=== PATIENT | female | born 1970 | race Caucasian/White ===

== ENCOUNTER 2024-01-17 10:44 | Outpatient (AMB) | payer OTHER, SELFPAY ==
--- NOTE | 2024-01-17 10:53 | MHC.PC.OV ---
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 Airfield Operations Specialist Required: No Accompanied by: Self / Same As Patient Allergies phenytoin [From Dilantin] Allergy (Severe, Verified 01/17/24 11:16) Rash codeine Adverse Reaction (Severe, Verified 01/17/24 11:16) Vomiting phenobarbital Adverse Reaction (Severe, Verified 01/17/24 11:16) Rash vancomycin Adverse Reaction (Severe, Verified 01/17/24 11:16) Rash Medication List - Last Reconciled 01/17/24 by Ronit Mcgill, [facility]- escitalopram oxalate 10 mg PO DAILY gabapentin 600 mg PO TID tizanidine 4 mg PO TID PRN trazodone 50 mg PO DAILY Tobacco use date assessed: 01/17/24 Dental Screening Dental Screen Date: 01/17/24 Did you have a dental visit in the last 12 months?: No Did you have a dental problem in the last 6 months where you did not have access to dental care?: No Was dental information given to patient?: Yes HPI HPI Comments History of Present Illness Details 53 y/o F with MDD with suicide attempt 2022, reports childhood epilpesy (not on meds currently last Sz in teens), chronic lower ext swelling, HTN, diverticulitis, Surgery: appendectomy, left lower ext with compartment syndrome surgery Family hx: Sister w/ stroke Suicide attempt w/ med oversode in 2022, took lisinopril. Was hospitalized. Utilization: sones and [employer] Health Maintenance: Colon interested in cologaurd, reports colon done about 2009 only dx with diverticulitis. Denies hx of colon cancer. Mammo overdue thinks last one was 2 years ago, ordered today DEXA has never had one, ordered today PAP has been several years, [employer] referral placed today Tdap today Specialists: Psychiatry counselor Here today to [facility] care and for a CPE Previous PCP Dr Micaela Cervantes [place] no medical records at this time. Reports that she relocated to this area to live with a sister. She currently does not drive. Depends on friends and uber to get her to medical appointments. for PN - she went to [facility], states she was diagnosed w/ an autoimmune PN; tips of fingers numbs, most sx in bilat legs and feet. Uses gabapentin with pretty good relief. Has edema bilateral lower extremities that started over the last few years. It is worse since onset. She has not currently on a diuretic. Reports he has never had a workup to include an echocardiogram or any ultrasound imaging of her lower extremities. [facility] Medical History Eczema History of suicidal ideation Anxiety Neuropathy Surgical History History of surgery on lower extremity History of appendectomy Family History (Updated 01/17/24 @ 11:12 by SOHAM Walters) Family/Other Stroke Maternal Grandmother MS (multiple sclerosis) Maternal Aunt Lupus Mother Dementia Other Mental health disorder Substance abuse Social History Housing: Apartment Patient Tobacco Use Status: Never used Tobacco e-Cigarette/Vaping Use: Never Used service: No Current occupational status: unemployed Cognitive needs: No Hearing needs: No Vision needs: Yes Questionnaire PHQ-9 Over the last 2 weeks, how often have you been bothered by any of the following problems? 1. Little interest or pleasure in doing things: not at all 2. Feeling down, depressed, or hopeless: not at all 3. Trouble falling or staying asleep, or sleeping too much: not at all 4. Feeling tired or having little energy: not at all 5. Poor appetite or overeating: not at all 6. Feeling bad about yourself - or that you are a failure or have let yourself or your family down: not at all 7. Trouble concentrating on things, such as reading the newspaper or watching television: not at all 8. Moving or speaking so slowly that other people could have noticed. Or the opposite - being so fidgety or restless that you have been moving around a lot more than usual: not at all 9. Thoughts that you would be better off or of hurting yourself in some way: not at all Total score: 0 Depression Screening Interpretation: Negative Depression Screening Done: Yes 03715 - PHQ-9 Billing: Yes Source: Developed by Drs. Octavio Jaimes, Lexi Garrett, Aníbal Vann and colleagues, with an educational alexsander from [employer]. Thrive Questionnaire Date Thrive assessed: 01/17/24 I am a: Patient What is your living situation today?: I have a steady place to live Within the past 12 months, did the food you bought not last and you didn't have the money to get more?: Never true Within the past 12 months, did you worry whether your food would run out before you got money to buy more?: Never true Do you have trouble paying for medicines?: No Do you have trouble getting transportation to medical appointments?: Yes Do you have trouble paying your heating and electricity bill?: No Do you have trouble taking care of your child, family member or friend?: No Do you have trouble with day-to-day activities such as bathing, preparing meals, shopping, managing finances, etc.?: No Are you currently unemployed and looking for a job?: Yes Are you interested in more education?: Yes Please select the resources that you would like help with: Transportation, Job search/training and Education Currently or been in a relationship where the following occur: no concerns reported THRIVE Score: 1 AUDIT C Alcohol Use Questionnaire (AUDIT-C) 1. How often do you have a drink containing alcohol?: Monthly or less 2. How many drinks containing alcohol do you have on a typical day when you are drinking?: 1 or 2 3. How often do you have six or more drinks on one occasion?: Never Total Score: 1 ARMAAN-7 AMB Questionnaire ARMAAN-7 Date ARMAAN - 7 assessed: 01/17/24 Feeling nervous, anxious, or on edge: 1 = Several days Not being able to stop or control worryin = Not at all Worrying too much about different things: 0 = Not at all Trouble relaxin = Not at all Being so restless that it is hard to sit still: 0 = Not at all Becoming easily annoyed or irritable: 0 = Not at all Feeling afraid as if something awful might happen: 0 = Not at all Total ARMAAN-7 score (0-4 normal; 5-9 mild; 10-14 moderate; 15-21 severe): 1 Source: Developed by Drs. Octavio Jaimes, Lexi Garrett, Aníbal Vann and colleagues, with an educational alexsander from [employer]. ARMAAN-7 Assessment Billing ARMAAN-7 Assessment Tool: ARMAAN-7 Assessment 77210 Review of Systems Const Details: Constitutional: Denies fever. Skin: Denies rash. Eye: Denies eye pain. ENMT: Denies sore throat and nasal congestion. Respiratory: Denies shortness of breath and cough. Gastrointestinal: Denies nausea, vomiting or abdominal pain. Cardiovascular: Denies chest pain and syncope. Genitourinary: Denies dysuria. Musculoskeletal: Denies back pain Neurologic: Denies headaches, confusion, and weakness. Psychiatric: Denies suicidal thoughts and substance abuse. Allergy/ Immunologic: Denies impaired immunity. Physical exam (Primary Care) Vital Signs: Last Vital Signs Temp 97.7 F 01/17/24 10:54 Pulse 124 H 01/17/24 10:54 Resp 14 01/17/24 10:54 BP 124/64 01/17/24 10:54 Pulse Ox 95 01/17/24 10:54 Oxygen Delivery Method Room Air 01/17/24 10:54 BMI result Body Mass Index 30.3 BMI Assessment/Plan discussion: High BMI High, discussed plan: lifestyle Tobacco/Smoking Status: Tobacco use Status Tobacco use date assessed 01/17/24 01/17/24 11:14 Patient Tobacco Use Status Never used Tobacco 01/17/24 11:14 e-Cigarette/Vaping Use Never Used 01/17/24 11:14 PHQ-9: PHQ-9 Score PHQ-9: Total score 0 01/17/24 11:56 Depression Screening Interpretation: Negative Thrive Assessment: Date of Thrive Assessment Date Thrive assessed 01/17/24 01/17/24 11:14 Currently or been in a relationship where the following occur: no concerns reported Const Other: General: Well developed, well nourished, in no acute distress. Appears stated age. Head: Normocephalic, atraumatic. Eyes: Pupils are equal, round and reactive to light and accommodation. Conjunctivae are clear. Vision grossly normal. Ears: TMs clear AU, EACS WNL Nose: Patent, without discharge. Mouth: There are no ulcers or lesions noted. No inflammation, no post nasal drip, no plaques nor exudates. Neck: Supple, no adenopathy or thyromegaly. Lungs: Clear to auscultation bilaterally. No rales, rhonchi or wheeze noted. Good air flow in all [place]. Heart: Tachycardic, Regular rhythm. No murmurs, click, rubs or gallops are noted. Abdomen: Limited exam as she was examined in the chair due to inability to get on exam table. Abdomen is round, protuberant, soft, nontender Musculoskeletal: Joints are nontender, no, redness, or effusions. Range of motion is observed to be normal. Pulses: Peripheral pulses nonpalpable bilat Extremities: No clubbing, cyanosis, +2 edema left lower extremity, +1 edema right lower extremity Neurologic: Gait and station normal. Cranial Nerves 2-12 intact. Abnormal balance due to peripheral neuropathy affecting bilateral lower extremities Skin: No rashes, ulcers, or lesions noted. Turgor is good. Skin color is good. Hair and nails are without abnormalities. Psych: Normal eye contact, affect and mood appropriate, and normal interactions. Patient is alert and appropriate to context. Immunizations Boostrix Tdap 2.5 Lf unit-8 mcg-5 Lf/0.5 mL intramuscular syringe Performing Provider: MYCHAL Carrillo Performing Location: [facility] Medicine Administered by: Neli Ferguson RN on 01/17/24 11:56 Dose Route Admin Location Dispensed Lot Number Expiration Date NDC Account Management Specialist 0.5 mL IM Right Deltoid 0.5 mL [id number] 04/04/26 [id number] [employer] VIS Given Date VIS Provided VIS Publication Date 01/17/24 Single Vaccine 21 Eligibility Eligibility Date Funding Source Not [facility] Eligible 01/17/24 Private Assessment and Plan Assessment & Plan (1) Encounter for general adult medical examination with abnormal findings: Code(s): Z00.01 - Encounter for general adult medical examination with abnormal findings (2) Menopause: Comment: Check DEXA and vitamin-D. Code(s): Z78.0 - Asymptomatic menopausal state (3) Cervical cancer screening: Comment: Refer to digital recruiter for a Pap. Code(s): Z12.4 - Encounter for screening for malignant neoplasm of cervix (4) Laboratory exam ordered as part of routine general medical examination: Code(s): Z00.00 - Encounter for general adult medical examination without abnormal findings (5) Encounter for screening involving social determinants of health (SDoH): Comment: Refer to nurse navigator to help with transportation issues. Code(s): Z13.9 - Encounter for screening, unspecified (6) Bilateral lower extremity edema: Comment: We will start with an echocardiogram. If echocardiogram does not yield any results, we will consider vascular studies of bilateral lower extremities. Can also consider gabapentin as a cause. Code(s): R60.0 - Localized edema (7) Peripheral neuropathy: Comment: Patient reports a full workup at [facility]. 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 We will have to get these records to further clarify. At this time she is on gabapentin 600 t.i.d.. Reports her pain is managed. We will continue at this time. Code(s): G62.9 - Polyneuropathy, unspecified Qualifiers: Peripheral neuropathy type: polyneuropathy associated with underlying disease Qualified Code(s): G63 - Polyneuropathy in diseases classified elsewhere (8) Obesity (BMI 30-39.9): Comment: Lifestyle modifications encouraged. Code(s): E66.9 - Obesity, unspecified (9) MDD (major depressive disorder), recurrent episode: Comment: With suicide attempt in 2022. Currently on escitalopram 10 mg p.o. daily and trazodone 50 mg p.o. daily. She is managed by outside Psychiatry and counseling. Code(s): F33.9 - Major depressive disorder, recurrent, unspecified Qualifiers: Major depression episode severity: moderate Qualified Code(s): F33.1 - Major depressive disorder, recurrent, moderate Orders: Orders Comprehensive [place]. Panel Fast Today Z00.00 - Encounter for general adult medical examination without abnormal findings Hemoglobin A1c Today Z00.00 - Encounter for general adult medical examination without abnormal findings TSH reflex Free T4 Today Z00.00 - Encounter for general adult medical examination without abnormal findings Vitamin D 1,25 dihydroxy Today Z00.00 - Encounter for general adult medical examination without abnormal findings Microalbumin, Random (w Creat) Today Z00.00 - Encounter for general adult medical examination without abnormal findings MM tomosynthesis screening BI Today Z12.31 - Encounter for screening mammogram for malignant neoplasm of breast XR DEXA appendicular skeleton Today Z78.0 - Asymptomatic menopausal state Lipid Panel Today Z00.00 - Encounter for general adult medical examination without abnormal findings CA echo transthoracic complete Today R60.0 - Localized edema TDaP Immunization Today Z23 - Encounter for immunization Referrals Cologuard Test Z12.11 - Encounter for screening for malignant neoplasm of colon, Z12.12 - Encounter for screening for malignant neoplasm of rectum SKI TECHNICIAN Referral Z12.4 - Encounter for screening for malignant neoplasm of cervix Nurse Navigator Referral Z13.9 - Encounter for screening, unspecified Medications: New tizanidine 4 mg (2 x 2 mg) PO TID PRN 30 tabs 1RF muscle spasticity 5 days gabapentin 600 mg (2 x 300 mg) PO TID 180 caps 2RF 30 days trazodone 50 mg PO DAILY 30 tabs 2RF Patient Instructions: Return to the office in about 4-6 weeks to follow up in her lab results as well as her echocardiogram. Sooner if needed. Health screenings for women You should visit your health care provider from time to time, even if you are healthy. The purpose of these visits is to: Screen for medical issues Assess your risk for future medical problems Encourage a healthy lifestyle Update vaccinations and other preventive care services Help you get to know your provider in case of an illness Information Even if you feel fine, you should still see your provider for regular checkups. These visits can help you avoid problems in the future. For example, the only way to find out if you have high blood pressure is to have it checked regularly. High blood sugar and high cholesterol levels also may not have any symptoms in the early stages. A simple blood test can check for these conditions. There are specific times when you should see your provider or receive specific health screenings. The [place] Preventive Services Task Force publishes a list of recommended screenings. Below are screening guidelines for women ages 18 to 39. BLOOD PRESSURE SCREENING Your blood pressure should be checked at least once every 3 to 5 years if: Your blood pressure is in the normal range (top number less than 120 mm Hg and bottom number less than 80 mm Hg) You don't have risk factors for high blood pressure Ask your provider if you need your blood pressure checked more often if: The top number is 120 to 129 mm Hg or the bottom number is 70 to 79 mm Hg You have diabetes, heart disease, kidney problems, are overweight, or have certain other health conditions You have a first-degree relative with high blood pressure You are Black You had high blood pressure during a If the top number is 130 mm Hg or greater or the bottom number is 80 mm Hg or greater, this is considered stage 1 hypertension. Schedule an appointment with your provider to learn how you can reduce your blood pressure. Watch for blood pressure screenings in your area. Ask your provider if you can stop in to have your blood pressure checked. BREAST CANCER SCREENING Experts do not agree about the benefits of breast self-exams in finding breast cancer or saving lives. Talk to your provider about what is best for you. A screening mammogram is not recommended for most women under age 40. Your provider may discuss and recommend mammograms, MRI scans, or ultrasounds if you have an increased risk for breast cancer, such as: A mother or sister who had breast cancer at a young age (most often starting screening earlier than the age the close relative was diagnosed) You carry a high-risk genetic marker CERVICAL CANCER SCREENING Cervical cancer screening should start at age 21 years unless your provider advises otherwise. After the first test: Women ages 21 through 29 should have a Pap test every 3 years. Exoprts do not agree on whether HPV testing is recommended for this age group. Women ages 30 through 65 should be screened with either a Pap test every 3 years or the HPV test every 5 years or both tests every 5 years (called cotesting ). Women who have been treated for precancer (cervical dysplasia) should continue to have Pap tests for 20 years after treatment or until age 65, whichever is longer. If you have had your uterus and cervix removed (total hysterectomy), and you have not been diagnosed with cervical cancer or precancer (high grade cervical neoplasia), you do not need cervical cancer screening. CHOLESTEROL SCREENING Cholesterol screening should begin at: Age 45 for women with no known risk factors for coronary heart disease Age 20 for women with known risk factors for coronary heart disease Repeat cholesterol screening should take place: Every 5 years for women with normal cholesterol levels More often if changes occur in lifestyle (including weight gain and diet) More often if you have diabetes, heart disease, kidney problems, or certain other conditions DIABETES SCREENING You should be screened for diabetes starting at age 35 and then repeated every 3 years if you have no risk factors for diabetes. Screening may need to start earlier and be repeated more often if you have other risk factors for diabetes, such as: You have a first degree relative with diabetes. You are overweight or have obesity. You have high blood pressure, prediabetes, or a history of heart disease. Screening for diabetes should be done if you are planning to become and you are overweight and have other risk factors such as high blood pressure. DENTAL EXAM Go to the dentist once or twice every year for an exam and cleaning. Your dentist will evaluate if you need more frequent visits. EYE EXAM Have an eye exam every 5 to 10 years before age 40. If you have vision problems, have an eye exam every 2 years or more often if recommended by your provider. You should have an eye exam that includes an examination of your retina (back of your eye) at least every year if you have diabetes. IMMUNIZATIONS Commonly needed vaccines include: Flu shot: get one every year. COVID-19 vaccine: ask your provider what is best for you. Tetanus-diphtheria and acellular pertussis (Tdap) vaccine: have one at or after age 19 as one of your tetanus-diphtheria vaccines if you did not receive it as an adolescent. Tetanus-diphtheria: have a booster (or Tdap) every 10 years. Varicella vaccine: receive 2 doses if you never had chickenpox or the varicella vaccine. Hepatitis B vaccine: receive 2, 3, or 4 doses, depending on your exact circumstances. Measles, mumps, and rubella (MMR) vaccine: receive 1 to 2 doses if you are not already immune to MMR. Your provider can tell you if you are immune. Ask your provider about the human papillomavirus (HPV) vaccine if: You have not received the HPV vaccine in the past You have not completed the full vaccine series (you should catch up on this shot) Ask your provider if you should receive other immunizations if you have certain health problems that increase your risk for some diseases such as pneumonia. INFECTIOUS DISEASE SCREENING Women who are sexually active should be screened for chlamydia and gonorrhea up until age 25. Women 25 years and older should be screened for chlamydia and gonorrhea if at high risk. Screening for hepatitis C: All adults ages 18 to 79 should get a one-time test for hepatitis C. people should be screened at every . Screening for human immunodeficiency virus (HIV): All people ages 15 to 65 should get a one-time test for HIV. Depending on your lifestyle and medical history, you may also need to be screened for infections such as syphilis and HIV, as well as other infections. PHYSICAL EXAM All adults should visit their provider from time to time, even if they are healthy. The purpose of these visits is to: Screen for disease Assess your risk of future medical problems Encourage a healthy lifestyle Update your vaccinations and other preventive care services Maintain a relationship with a provider in case of an illness Your height, weight, and BMI should be checked at every exam. During your exam, your provider may ask you about: Depression and anxiety Diet and exercise Alcohol and tobacco use Safety issues, such as using seat belts, smoke detectors, and intimate partner violence Your medicines and risk for interactions SKIN SELF-EXAM Your provider may check your skin for signs of skin cancer, especially if you're at high risk, such as if you: Have had skin cancer before Have close relatives with skin cancer Have a weakened immune system OTHER SCREENING Talk with your provider about colon cancer screening if you have a strong family history of colon cancer or polyps, or if you have had inflammatory bowel disease or polyps yourself. Routine bone density screening of women under 40 is not recommended. Review Patient declined Colonoscopy: 01/17/24 Coding Level of Care Code New Pt Prev Care 40-64y(03794) Diagnoses Encounter for general adult medical examination with abnormal findings Z00.01 Menopause Z78.0 Cervical cancer screening Z12.4 Laboratory exam ordered as part of routine general medical examination Z00.00 Encounter for screening involving social determinants of health (SDoH) Z13.9 Bilateral lower extremity edema R60.0 Polyneuropathy associated with underlying disease G63 Peripheral neuropathy type: polyneuropathy associated with underlying disease Obesity (BMI 30-39.9) E66.9 Moderate episode of recurrent major depressive disorder F33.1 Major depression episode severity: moderate Additional Codes ARMAAN-7 Assessment Billing - ARMAAN-7 Assessment Tool: ARMAAN-7 Assessment 28017 ([id number])
[2024-01-17 10:54] VITALS: BP 124/64; PULSE 124; RESP 14; TEMP 36.5; O2SAT 95; BMI 30.3
== END 2024-01-17 12:02 | disposition home or self-care (01) ==
PROVIDERS: PCP Family Medicine; Visit Provider Nurse Practitioner Family
DX: Z00.00 Encounter for general adult medical examination without abnormal findings (principal); F33.1 Major depressive disorder, recurrent, moderate; G63 Polyneuropathy in diseases classified elsewhere; Z23 Encounter for immunization; R60.0 Localized edema; Z78.0 Asymptomatic menopausal state; E66.9 Obesity, unspecified
CPT/HCPCS: 90471; 90715; 99386

== ENCOUNTER 2024-01-17 11:53 | Outpatient (REF) | payer OTHER, SELFPAY ==
[2024-01-17 17:47] LABS: Alanine Aminotransferase 22 U/L (0-31); Albumin Level 3.2 g/dL (3.5-5.0); Alkaline Phosphatase 180 U/L (39-117); Anion Gap 15 (12-20); Aspartate Amino Transferase 98 U/L (5-31); Bilirubin Total 2.7 mg/dL (0.0-1.0); Blood Urea Nitrogen < 3 mg/dL (9-16); Calcium 8.4 mg/dL (8.4-10.2); Carbon Dioxide 23 mmol/L (22-29); Chloride 105 mmol/L (96-108); Cholesterol 121 mg/dL (<200); Estimated Average Glucose 94 mg/dL; Estimated Glomerular Filt Rate > 60; Glucose Fasting 105 mg/dL (60-99); HDL Cholesterol 13 mg/dL (>40); Hemoglobin A1c % 4.9 % (<6.0); LDL Cholesterol Calculated 81 mg/dL (<100); Potassium 3.8 mmol/L (3.3-5.1); Sodium 139 mmol/L (135-145); TSH reflex Free T4 3.92 uIU/mL (0.32-4.0); Total Protein 7.4 g/dL (6.5-8.0); Triglycerides 135 mg/dL (<150)
[2024-01-24 18:09] LABS: VITAMIN D (1,25 OH) D3 29 pg/mL; Vit D (1,25-Dihydroxy) Total 29 pg/mL (18-72); Vitamin D (1,25 OH) D2 <8 pg/mL
== END 2024-01-17 11:54 | disposition home or self-care (01) ==
LOC: HO.WFDLDS 11:53
PROVIDERS: Visit Provider Nurse Practitioner Family
DX: Z00.00 Encounter for general adult medical examination without abnormal findings (principal)
CPT/HCPCS: 36415; 80053; 80061; 82652; 83036; 84443

== ENCOUNTER 2024-02-22 11:34 | Outpatient (REF) | payer OTHER, SELFPAY ==
[2024-02-23 11:35] LABS: Bacterial Vaginosis PCR POSITIVE (Negative); Candida Group PCR NOT DETECTED (Not Detect); Candida glab krusei PCR NOT DETECTED (Not Detect); Trichomonas vaginalis PCR NOT DETECTED (Not Detect)
[2024-02-23 13:37] LABS: CT PCR NOT DETECTED (Not Detect.); NG PCR NOT DETECTED (Not Detect.)
[2024-02-28 12:28] LABS: HPV mRNA E6/E7 Not Detected (Not Detected)
== END 2024-02-22 11:35 | disposition home or self-care (01) ==
LOC: HO.LAB 11:34
PROVIDERS: PCP Nurse Practitioner Family; Visit Provider Advanced Practice Midwife
DX: Z01.419 Encounter for gynecological examination (general) (routine) without abnormal findings (principal); Z11.51 Encounter for screening for human papillomavirus (HPV); Z20.2 Contact with and (suspected) exposure to infections with a predominantly sexual mode of transmission; N89.8 Other specified noninflammatory disorders of vagina
CPT/HCPCS: 0352U; 36415; 87491; 87591; 87624; 88175

== ENCOUNTER 2024-02-22 11:34 | Outpatient (AMB) | payer OTHER, SELFPAY ==
[2024-02-22 11:50] VITALS: BP 128/78; BMI 29.0
--- NOTE | 2024-02-22 11:50 | A.OFFVIS_ITS ---
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 Library Clerical Assistant Required: No Library Clerical Assistant Services: Library Clerical Assistant Present Information Interpreted: clinical only Eligibility Examiner: Eligibility Examiner Present Allergies phenytoin [From Dilantin] Allergy (Severe, Verified 02/22/24 11:51) Rash codeine Adverse Reaction (Severe, Verified 02/22/24 11:51) Vomiting phenobarbital Adverse Reaction (Severe, Verified 02/22/24 11:51) Rash vancomycin Adverse Reaction (Severe, Verified 02/22/24 11:51) Rash Medication List - Last Reconciled 02/22/24 by Cyndi Juares CNM escitalopram oxalate 10 mg PO DAILY gabapentin 600 mg (2 x 300 mg) PO TID 30 days tizanidine 4 mg (2 x 2 mg) PO TID PRN 5 days trazodone 50 mg PO DAILY Post menopausal: Yes (05/20/23) Do you need a note to return to daycare/school/sports/work: No HPI 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 She has on a number of medications for these things. The last time she was sexually active with 3 years ago it has been a number of years since she had a exam her last period was last April so it has not quite a year yet. She has not really worried about STDs but except some testing with the speculum exam., she has a mammogram coming up. [facility] Medical History Eczema History of suicidal ideation Anxiety Neuropathy Surgical History History of surgery on lower extremity History of appendectomy Family History Family/Other Stroke Maternal Grandmother MS (multiple sclerosis) Maternal Aunt Lupus Mother Dementia Other Mental health disorder Substance abuse Social History Housing: Apartment Patient Tobacco Use Status: Never used Tobacco e-Cigarette/Vaping Use: Never Used service: No Current occupational status: unemployed Cognitive needs: No Hearing needs: No Vision needs: Yes Female Reproductive History Menstrual Age of Menarche: 15 Duration of menses: 3-5 days control method: none Total pregnancies: 1 Full term: 1 History of abnormal pap smear: No (no abn.pap ,previous pap negative ,unsure date) Physical Exam Vital Signs: Last Vital Signs BP 128/78 02/22/24 11:50 BMI result Body Mass Index 29.0 Const Other: Patient has lower extremity limitations in that she clearly was not able to maintain her legs in any stable position and has limited sensation and control. General: healthy appearing, comfortable, no acute distress, well developed and alert Nutritional Appearance: average body habitus Orientation/consciousness: patient oriented x3 HEENT Head: Yes normocephalic Neck Neck: Yes normal visual inspection Thyroid: Thyroid normal Chest Chest palpation & inspection: normal inspection of the chest Breast/axilla inspection: normal inspection of the breasts and normal inspection of the axillae Breast/axilla palpation: normal palpation of the breasts and normal palpation of the axillae Resp Effort & Inspection: normal respiratory effort GI Inspection: Yes normal to inspection, No Abdominal wall edema and No distended Palpation (GI): Soft to palpation and nontender Other: .Her entire vulvar area is very reddened and inflamed such as would usual the be accompanied by a sensation of vaginal itching or irritation or burning. The patient however denies any such sensation and has no discomfort whatsoever. However it is so inflamed and given her obvious since 0 real deficits I am offering her clotrimazole betamethasone cream for her use in this area and a limited basis sparingly. She has eczema so it could be in keeping. She says she uses cotton underwear. Atrophic vaginal changes noted consistent with menopause. General: Yes bladder normal to palpation External Female Exam: normal appearance of the urethra Speculum Exam - Vagina: normal appearance of the vagina, normal palpation and normal vaginal discharge Speculum Exam - Cervix: normal appearance of the cervix, normal palpation and nontender Bimanual exam- vagina & uterus: normal bimanual exam, normal palpation, uterine size normal, bladder normal to palpation, consistency normal, normal palpation, uterine mobility normal, uterine shape normal, No Cervical tenderness present, non-tender and no cervical motion tenderness Bimanual Exam- Adnexa, other: normal adnexae, no masses, normal and No adnexal tenderness Neuro General: patient oriented x3 Assessment & Plan Assessment & Plan (1) Peripheral neuropathy: Comment: Patient reports a full workup at [facility]. 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 We will have to get these records to further clarify. At this time she is on gabapentin 600 t.i.d.. Reports her pain is managed. We will continue at this time. 02/22/2024 see note re vulvar inflammation, Code(s): G62.9 - Polyneuropathy, unspecified Category: Medical Qualifiers: Peripheral neuropathy type: polyneuropathy associated with underlying disease Qualified Code(s): G63 - Polyneuropathy in diseases classified elsewhere (2) Bilateral lower extremity edema: Comment: We will start with an echocardiogram. If echocardiogram does not yield any results, we will consider vascular studies of bilateral lower extremities. Can also consider gabapentin as a cause. Code(s): R60.0 - Localized edema Category: Medical (3) Cervical cancer screening: Comment: Refer to animal pathology teacher for a Pap.; 02/22/2024 Pap done. Code(s): Z12.4 - Encounter for screening for malignant neoplasm of cervix Category: Medical Plan Her entire vulvar area is very reddened and inflamed such as would usual the be accompanied by a sensation of vaginal itching or irritation or burning. The patient however denies any such sensation and has no discomfort whatsoever. However it is so inflamed, and given her obvious sensorial deficits/neuropathy, I am offering her clotrimazole betamethasone cream for her use in this area on a limited basis sparingly. She has eczema, so it could be in keeping w that.. She says she uses cotton underwear. She has her mammogram and other testing ordered by her primary care provider. She says she stopped driving years ago and takes a number where she needs to go. She was able to dress herself with difficulty but there are challenges. Pap smear was done as well as testing for gonorrhea chlamydia trichomoniasis bacterial vaginosis and yeast she declined in blood work. I did inquire as to whether not she had any diabetes says it is often a responsible factor for neuropathy but she denies this, and says any fasting blood sugars were within normal limits. Orders: Orders Pap Smear Today Z01.419 - Encounter for gynecological examination (general) (routine) without abnormal findings CT NG by PCR Today N89.8 - Other specified noninflammatory disorders of vagina, Z11.3 - Encounter for screening for infections with a predominantly sexual mode of transmission Bacterial Vaginosis Panel Today N89.8 - Other specified noninflammatory diso rders of vagina Medications: New clotrimazole-betamethasone 1-0.05 % 1 appl topical BID 2 weeks 45 grams 1RF Coding Level of Care Code New Pt Prev Care 40-64y(06884) Diagnoses Polyneuropathy associated with underlying disease G63 Peripheral neuropathy type: polyneuropathy associated with underlying disease Bilateral lower extremity edema R60.0 Cervical cancer screening Z12.4
== END 2024-02-22 12:50 | disposition home or self-care (01) ==
LOC: HO.HWSM 11:34
PROVIDERS: PCP Nurse Practitioner Family; Visit Provider Advanced Practice Midwife
DX: Z01.419 Encounter for gynecological examination (general) (routine) without abnormal findings (principal); R60.0 Localized edema; G63 Polyneuropathy in diseases classified elsewhere; Z12.4 Encounter for screening for malignant neoplasm of cervix
CPT/HCPCS: 99386

== ENCOUNTER 2024-02-27 12:20 | Outpatient (AMB) | payer OTHER, SELFPAY ==
--- NOTE | 2024-02-27 12:27 | MHC.PC.OV ---
Vital Signs 02/27/24 12:31 02/27/24 12:38 Height 5 ft 3 in Weight 162 lb 4 oz BMI 28.7 BP 146/64 H 138/58 L Blood Pressure Location Rt brachial Rt brachial Position Sitting Sitting Respiration 16 Pulse 121 H 100 Pulse Source Pulse Oximeter Auscultation Pulse Oximetry (%) 97 Oxygen Delivery Method Room Air Intake Visit Reasons: FU labs, PN and Echo for BLE edema Intake Note: Follow up lab results, echo is scheduled on Monday. Mammogram and bone density scheduled for 03/14/24. Requesting refill on Trazadone. Allergies phenytoin [From Dilantin] Allergy (Severe, Verified 02/27/24 12:29) Rash codeine Adverse Reaction (Severe, Verified 02/27/24 12:29) Vomiting phenobarbital Adverse Reaction (Severe, Verified 02/27/24 12:29) Rash vancomycin Adverse Reaction (Severe, Verified 02/27/24 12:29) Rash Medication List - Last Reconciled 02/27/24 by Ronit Mcgill, SOCIAL SERVICE TECHNICIAN- clotrimazole-betamethasone 1-0.05 % 1 appl topical BID 2 weeks escitalopram oxalate 10 mg PO DAILY gabapentin 600 mg (2 x 300 mg) PO TID 30 days tizanidine 4 mg (2 x 2 mg) PO TID PRN 5 days trazodone 50 mg PO DAILY Tobacco use date assessed: 01/17/24 Dental Screening Dental Screen Date: 01/17/24 HPI HPI Comments History of Present Illness Details 53 y/o F with MDD with suicide attempt 2022, reports childhood epilpesy (not on meds currently last Sz in teens), chronic lower ext swelling, HTN, diverticulitis, prothrombin gene mutation Surgery: appendectomy, left lower ext with compartment syndrome surgery Family hx: Sister w/ stroke Suicide attempt w/ med oversode in 2022, took lisinopril. Was hospitalized. Utilization: [employer] and [employer]ator [employer] Health Maintenance: Colon interested in cologaurd, reports colon done about 2009 only dx with diverticulitis. Denies hx of colon cancer. 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 Edema is improved, started taking red vine leaf and thinks this has helped Echo, DEXA and Mammo scheduled and pending Reviewed below labs from 01/17/2024 with her today. Patient wonders if her overdose on lisinopril contributes at all to her renal function. 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 Labs from 01/17/2024 show normal lytes, BUN less than 3, creatinine 0.73, GFR greater than 60, fasting glucose 105, hemoglobin A1c 4.9%, elevated total bilirubin 2.7, elevated AST 98, normal ALT 22, elevated alk phos 180, low albumin 3.2, normal total cholesterol 121, triglycerides 135, LDL 81, HDL 13, TSH 3.92, Vit D 29 02/27/2024 urine microalbumin normal Plan Check some additional labs to workup the abnormal labs as found above. Check ultrasound of abdomen to include elastography and renal imaging. Return to the office in about 4-6 weeks to follow up on the imaging and the lab results, sooner as needed, at this time no changes in medication, trazodone refill sent in. Trazodone and/or gabapentin may need to be discontinued in the future. The gabapentin may be contributing to her edema in the trazodone may be contributing to the liver enzyme elevation however no decisions will be made at this time to stop these meds until work up is complete. the tachycardia will also need to be ff'd up on. *30 min fu end of Mar discuss US Liver, Echo, Labs -- will cancel if US/labs not done and move appt* [facility] Medical History Eczema History of suicidal ideation Anxiety Neuropathy Surgical History History of surgery on lower extremity History of appendectomy Family History Family/Other Stroke Maternal Grandmother MS (multiple sclerosis) Maternal Aunt Lupus Mother Dementia Other Mental health disorder Substance abuse Social History Housing: Apartment Patient Tobacco Use Status: Never used Tobacco e-Cigarette/Vaping Use: Never Used service: No Current occupational status: unemployed Cognitive needs: No Hearing needs: No Vision needs: Yes Female Reproductive History Menstrual Age of Menarche: 15 Questionnaire Thrive Questionnaire Date Thrive assessed: 01/17/24 ARMAAN-7 AMB Questionnaire ARMAAN-7 Date ARMAAN - 7 assessed: 01/17/24 Source: Developed by Drs. Octavio Jaimes, Lexi Garrett, Aníbal Vann and colleagues, with an educational alexsander from [employer]. Physical exam (Primary Care) Vital Signs: Last Vital Signs Pulse 121 H 02/27/24 12:31 Resp 16 02/27/24 12:31 BP 138/58 L 02/27/24 12:38 Pulse Ox 97 02/27/24 12:31 Oxygen Delivery Method Room Air 02/27/24 12:31 BMI result Body Mass Index 28.7 Tobacco/Smoking Status: Tobacco use Status Tobacco use date assessed 01/17/24 02/27/24 12:29 Patient Tobacco Use Status Never used Tobacco 02/27/24 12:29 e-Cigarette/Vaping Use Never Used 02/27/24 12:29 Thrive Assessment: Date of Thrive Assessment Date Thrive assessed 01/17/24 02/27/24 12:29 Const Other: General: Well developed, well nourished, in no acute distress. Appears stated age.. Lungs: Clear to auscultation bilaterally. No rales, rhonchi or wheeze noted. Good air flow in all [place]. Heart: Tachycardic, Regular rhythm. No murmurs, click, rubs or gallops are noted. Abdomen: Limited exam as she was examined in the chair due to inability to get on exam table. Abdomen is round, protuberant, soft, nontender Pulses: Peripheral pulses nonpalpable bilat Extremities: No clubbing, cyanosis, +1 edema left lower extremity, trace edema right lower extremity Neurologic: Gait and station normal. Cranial Nerves 2-12 intact. Abnormal balance due to peripheral neuropathy affecting bilateral lower extremities Psych: Normal eye contact, affect and mood appropriate, and normal interactions. Patient is alert and appropriate to context. Assessment and Plan Assessment & Plan (1) Elevated LFTs: Code(s): R7.89 - Other specified abnormal findings of blood chemistry (2) Prothrombin gene mutation: Code(s): D68.52 - Prothrombin gene mutation (3) Secondary hypercoagulability disorder: Code(s): D68.69 - Other thrombophilia (4) Bilateral lower extremity edema: Comment: We will start with an echocardiogram. If echocardiogram does not yield any results, we will consider vascular studies of bilateral lower extremities. Can also consider gabapentin as a cause. Code(s): R60.0 - Localized edema Plan This note is constructed using voice recognition software. While every effort has been made to ensure accuracy in construction analyst, still errors may have been included Sometimes, these errors may affect the content or meaning of the given sentence . Total time spent caring for the patient today was 43 minutes. This includes time spent before the visit reviewing the chart, time spent during the visit, and time spent after the visit on documentation Orders: Orders Ferritin Today . - Other specified abnormal findings of blood chemistry Alpha Fetoprotein Today R7.89 - Other specified abnormal findings of blood chemistry Lactate Dehydrogenase Today R7.89 - Other specified abnormal findings of blood chemistry Smooth Muscle Antibody Today R7.89 - Other specified abnormal findings of blood chemistry JAVIER Reflex Titer and Pattern Today R7. - Other specified abnormal findings of blood chemistry Complete Blood Count no Diff Today R7. - Other specified abnormal findings of blood chemistry Zinc Today R79.89 - Other specified abnormal findings of blood chemistry Vitamin C Today R7.89 - Other specified abnormal findings of blood chemistry US abdomen nicolas w elastography Today R7. - Other specified abnormal findings of blood chemistry Alpha 1 Anti-trypsin Today R7.89 - Other specified abnormal findings of blood chemistry Ceruloplasmin Today R7.89 - Other specified abnormal findings of blood chemistry Gamma Glutamyl Transpeptidase Today R79.89 - Other specified abnormal findings of blood chemistry Monotest Today R7.89 - Other specified abnormal findings of blood chemistry IRON PROFILE Today R7.89 - Other specified abnormal findings of blood chemistry Comprehensive Met. Panel Today R7.89 - Other specified abnormal findings of blood chemistry Vitamin B12 and Folate Today R79.89 - Other specified abnormal findings of blood chemistry Parathyroid Hormone Intact Today R7.89 - Other specified abnormal findings of blood chemistry Medications: Refilled trazodone 50 mg PO DAILY 30 tabs 2RF Coding Level of Care Code Est Pt Level 5 (91023) Complex EM visit Add On G2211 Diagnoses Elevated LFTs R79.89 Prothrombin gene mutation D68.52 Secondary hypercoagulability disorder D68.69 Bilateral lower extremity edema R60.0
[2024-02-27 12:31] VITALS: BP 146/64; PULSE 121; RESP 16; O2SAT 97; BMI 28.7
[2024-02-27 12:38] VITALS: BP 138/58; PULSE 100
== END 2024-02-27 13:12 | disposition home or self-care (01) ==
PROVIDERS: PCP Nurse Practitioner Family; Visit Provider Nurse Practitioner Family
DX: R79.89 Other specified abnormal findings of blood chemistry (principal); D68.52 Prothrombin gene mutation; R60.0 Localized edema
CPT/HCPCS: 99215; G2211

== ENCOUNTER 2024-02-27 14:25 | Outpatient (REF) | payer OTHER, SELFPAY ==
[2024-02-27 15:17] LABS: Creatinine Urine 149.75 mg/dL; Microalbum/Creatinine Ratio Ur 4.6 ug/mg cr (<30)
== END 2024-02-27 14:26 | disposition home or self-care (01) ==
LOC: HO.LNP 14:25
PROVIDERS: Visit Provider Nurse Practitioner Family
DX: Z00.00 Encounter for general adult medical examination without abnormal findings (principal)
CPT/HCPCS: 82043; 82570

== ENCOUNTER → 2024-03-01 09:05 | Outpatient (REF) | payer OTHER, SELFPAY ==
--- NOTE | 2024-03-01 09:08 | CA_ITS ---
Transthoracic Echocardiogram Patient (Last, First, Middle): Janene Her, Gender: Female Date of : 1970 Age: 53 Procedure Date: 03/01/2024 Procedure Type: Transthoracic Echocardiogram Location: OP Height: 160.02 cm Weight: 73.48 kg BSA: 1.77 m2 Heart Rate: 107 bpm BP: 136 / 60 mmHg Quality Assurance Qa Lab Analyst: SB Referring MD: Ronit Mcgill [facility] Symptoms: R60.0 - Localized edema Study Quality: Fair ECG Rhythm: Tachycardia Conclusions: - The left ventricular systolic function is normal. The calculated ejection fraction is 65% by biplane method. - No obvious valvular pathology seen on this study. Findings Left Ventricle Normal left ventricular cavity size. The left ventricular systolic function is normal. The calculated ejection fraction is 65% by biplane method. There is no evidence of regional wall motion abnormalities. Evidence suggests grade I (mild) diastolic dysfunction. There is mild septal asymmetric hypertrophy. Right Ventricle Normal right ventricular cavity size and systolic function. Atria The left atrium is mildly dilated. The right atrium is normal in size. Aortic Valve There is a normal trileaflet aortic valve. There is no aortic valve stenosis. There is no aortic valve regurgitation. Mitral Valve The mitral valve appears normal. There is no mitral valve regurgitation. There is no mitral valve stenosis. Pulmonic Valve The pulmonic valve is likely normal. Tricuspid Valve There is no tricuspid valve regurgitation. Tricuspid regurgitation envelope is inadequate for calculation of right ventricular systolic pressure. Great Vessels The asc aorta and aortic arch are normal in size. Venous The inferior vena cava was not well visualized. Pericardium/Pleural There is no evidence of pericardial effusion. Prior Study Comparison No prior study available for comparison. Recommendations, Care & Conclusions No obvious valvular pathology seen on this study. Measurements 2D Linear Measurements IVSd: 1.10 0.6-0.9/0.6-1.0 cm LVIDd: 4.96 3.9-5.3/4.2-5.9 cm LVIDd Index: 2.80 2.4-3.2/2.2-3.1 cm/m2 LVIDs: 3.01 2.0-3.6 cm LVPWd: 0.72 0.7-1.1 cm LA Diam: 4.90 2.7-3.8/3.0-4.0 cm LAIDs Index: 2.77 1.5-2.3 cm/m2 LV Mass: 196.65 67-162/88-224 g LV Mass Index: 111.10 43-95/49-115 g/m2 LVOT Diam: 1.90 3.0+(-)1.3 cm 2D Systolic Function EF 4C: 63.90 >55% EF 2C: 67.40 >55% EF BiP: 64.90 >55% Mitral Valve MV Pk E: 1.17 MV PK A: 1.28 MV Decel Time: 131.00 E/A: 0.90 E'Lateral: 6.85 E'Medial: 7.72 E/E' Med: 15.20 E/E' Lat: 17.10 PHT: 38.00 MVA PHT: 5.79 Decel [place]: 8.91 Aortic Valve AoV Pk Satya: 1.81 AoV Pk Grad: 13.00 ALVARO: 2.63 LVOT LVOT Pk Satya: 1.62 LVOT Mn Satya: 1.12 LVOT VTI: 0.32 LVOT Pk Grad: 10.00 LVOT Mn Grad: 6.00 LVOT Diam: 1.90 LVOT Area: 2.84 Diastolic Function MV Pk E: 1.17 MV Pk A: 1.28 E/A: 0.90 E'Medial: 7.72 E/E' Med: 15.20 E' Laterial: 6.85 E/E' Lat: 17.10 Right Ventricle TAPSE (mm): 22.10 TVS' Satya: 17.00 Tricuspid Valve RA Press: 3.00 Great Vessels Aorta Sinus of Valsalva: 2.70 2.0-3.5 cm Ao Asc: 3.10 2.1-3.4 cm Ao Arch: 2.90 Pulmonary Veins Pulm Vein S/D 1.30 Pulmonary Valve PV Pk Satya: 1.33 Peak PV Grad: 7.00 Updated in Other Vendor System with Status of Final Luis White MD electronically signed on 03/02/2024 12:01:32 PM with status of Final
[2024-03-01 10:46] LABS: Hematocrit 35.3 % (37.0-47.0); Hemoglobin 11.9 g/dl (12.0-16.0); Mean Corpuscular HGB Conc 33.7 g/dl (31.0-35.0); Mean Corpuscular Hemoglobin 34.9 pg (27.0-33.0); Mean Corpuscular Volume 103.5 fL (80.0-98.0); Mean Platelet Volume 9.7 fL (9.4-12.3); Platelet Count 207 X10*3/uL (160-400); Red Blood Count 3.41 X10*6/uL (4.20-5.50); Red Cell Distribution Width 14.4 % (11.0-16.0); White Blood Count 10.5 X10*3/uL (4.8-10.8)
[2024-03-01 11:13] LABS: Parathyroid Hormone Intact 20.8 pg/mL (8.7-77.1)
[2024-03-01 11:16] LABS: Alanine Aminotransferase 16 U/L (0-31); Albumin Level 3.3 g/dL (3.5-5.0); Alkaline Phosphatase 183 U/L (39-117); Anion Gap 12 (12-20); Aspartate Amino Transferase 58 U/L (5-31); Bilirubin Total 2.1 mg/dL (0.0-1.0); Blood Urea Nitrogen 6 mg/dL (9-16); Calcium 9.1 mg/dL (8.4-10.2); Carbon Dioxide 29 mmol/L (22-29); Chloride 103 mmol/L (96-108); Estimated Glomerular Filt Rate > 60; Gamma Glutamyl Transpeptidase 283 U/L (7-33); Glucose Random 105 mg/dL (60-115); Iron 95 mcg/dL (30-160); Lactate Dehydrogenase 167 U/L (122-220); Lipase 22 U/L (8-78); Percent Iron Saturation 57 % (15-50); Potassium 3.7 mmol/L (3.3-5.1); Sodium 140 mmol/L (135-145); Total Iron Binding Capacity 166 mcg/dL (228-428); Total Protein 7.7 g/dL (6.5-8.0); Unsaturated Iron Binding 71 ug/dL
[2024-03-01 11:22] LABS: Amylase 50 U/L (28-100)
[2024-03-01 11:42] LABS: Ferritin 143 ng/mL (10-250); Folate 15.7 ng/mL (> or = 4.0); Vitamin B12 876 pg/mL (200-900)
[2024-03-01 12:03] LABS: Creatinine Urine 164.21 mg/dL; Microalbum/Creatinine Ratio Ur 4.8 ug/mg cr (<30)
[2024-03-01 12:33] LABS: Monotest Negative (Negative)
[2024-03-04 09:03] LABS: Alpha 1 Anti-trypsin 214 mg/dL (83-199); Ceruloplasmin 21 mg/dL (14-48)
[2024-03-05 01:19] LABS: Zinc 54 mcg/dL (60-130)
[2024-03-06 08:28] LABS: Alpha Fetoprotein 6.4 ng/mL
[2024-03-06 12:44] LABS: Vitamin C 0.8 mg/dL (0.3-2.7)
[2024-03-06 15:33] LABS: Anti Nuclear Antibody Screen NEGATIVE (NEGATIVE)
[2024-03-07 23:47] LABS: Smooth Muscle Antibody 24 U (<20)
== END ==
LOC: HO.CARD 09:05
PROVIDERS: PCP Nurse Practitioner Family; Visit Provider Nurse Practitioner Family
DX: R60.0 Localized edema (principal); R79.89 Other specified abnormal findings of blood chemistry; Z00.00 Encounter for general adult medical examination without abnormal findings
CPT/HCPCS: 36415; 80053; 82043; 82103; 82105; 82150; 82180; 82390; 82570; 82607; 82728; 82746; 82977; 83540; 83615; 83690; 83970; 84630; 85027; 86015; 86038; 86308; 93306

== ENCOUNTER → 2024-03-01 09:08 | Outpatient (BNV) | payer OTHER, SELFPAY | PROVIDERS: PCP Nurse Practitioner Family; Visit Provider Internal Medicine | DX: I42.2 Other hypertrophic cardiomyopathy (principal); R93.1 Abnormal findings on diagnostic imaging of heart and coronary circulation | CPT/HCPCS: 93306 ==

== ENCOUNTER 2024-03-14 10:39 | Outpatient (REF) | payer OTHER, SELFPAY ==
--- NOTE | ~2024-03-14 | MM_ITS ---
EXAMINATION: MM SCREENING DIGITAL BREAST TOMOSYNTHESIS, BILATERAL CLINICAL INFORMATION: Screening. Asymptomatic. COMPARISON: Mammography: This study is compared with prior exams dating back to 2020. TECHNIQUE: Digital breast tomosynthesis is performed in both the craniocaudal and mediolateral oblique views along with computer-aided detection (CAD). Synthesized 2D images are generated from the tomosynthesis. FINDINGS: The breasts are heterogeneously dense, which may obscure small masses (ACR BI-RADS breast composition Category c). There are no significant masses, abnormal calcifications, or other abnormalities. MM/MM tomosynthesis screening BI IMPRESSION: No mammographic evidence of malignancy. ASSESSMENT: BI-RADS BI-RADS 1 - Negative RECOMMENDATION: Routine annual mammography screening. 1 year F/U This examination should not preclude the clinical evaluation of a suspicious palpable abnormality. This patient's information was entered into a reminder system with a target due date for their next mammogram.
--- NOTE | ~2024-03-14 | MM_ITS ---
EXAMINATION: BONE DENSITOMETRY CLINICAL INDICATION: Asymptomatic menopausal state. COMPARISON: This is the patient's baseline examination. TECHNIQUE: Using a [employer] DXA System (software version: 13.1) manufactured by [employer], dual-energy x-ray absorptiometry was performed of the lumbar spine and left hip. The images are of good technical quality. Summary results are attached. FINDINGS: LEFT FEMUR, NECK: BMD 0.581 g/cm2, Z-score -2.7, T-score -3.3, osteoporosis. LEFT FEMUR, TOTAL: BMD 0.605 g/cm2, Z-score -2.9, T-score -3.2, osteoporosis. AP SPINE L1-L4: BMD 1.059 g/cm2, Z-score -0.8, T-score -1.0, normal. IDENTIFIED RISK FACTORS: Menopause, history of fracture (adult). HISTORY OF FRACTURE: Other. MEDICATIONS: Calcium supplements or multivitamin, vitamin D. MM/XR DEXA axial skeleton IMPRESSION: 1. DIAGNOSIS: Osteoporosis based on the lowest T-score value of -3.3 in the femoral neck applying World Health Organization criteria. 2. 10-YEAR FRACTURE RISK PREDICTION, FRAX: According to the guidelines, FRAX calculation should only be performed on patients in the osteopenia bone density category. Therefore, FRAX was not performed on this patient. 3. Treatment Recommendations: NOF guidelines recommend consideration for treatment in postmenopausal women and men age 50 and older presenting with the following: -A hip or vertebral (clinical or morphometric) fracture. -T-score less than or equal to -2.5 at the femoral neck or spine after appropriate evaluation to exclude secondary causes. -Low bone mass at the hip or spine and a 10-year fracture probability by FRAX of greater than or equal to 3% for hip fracture or greater than or equal to 20% for major osteoporotic fracture based on the [place] adapted WHO algorithm. 4. Other Recommendations: All treatment decisions require clinical judgment and consideration of individual patient factors, including patient preferences, comorbidities, previous drug use, risk factors not captured in the FRAX model (e.g. frailty, falls, vitamin D deficiency, increased bone turnover, interval significant decline in bone density) and possible under or overestimation of fracture risk by FRAX. Additional medical evaluation for secondary cause of low bone mineral density may be appropriate. FUTURE SCAN RECOMMENDATION: People with diagnosed cases of osteoporosis or at high risk for fracture should have regular bone mineral density tests. For patients eligible for Medicare, routine testing is allowed once every 2 years. The testing frequency can be increased to one year for patients who have rapidly progressing disease, those who are receiving or discontinuing medical therapy to restore bone mass, or have additional risk factors.
== END 2024-03-14 10:40 | disposition home or self-care (01) ==
LOC: HO.MAMMO 10:39
PROVIDERS: PCP Nurse Practitioner Family; Visit Provider Nurse Practitioner Family
DX: Z12.31 Encounter for screening mammogram for malignant neoplasm of breast (principal); Z13.820 Encounter for screening for osteoporosis; Z78.0 Asymptomatic menopausal state
CPT/HCPCS: 77063; 77067; 77080

== ENCOUNTER → 2024-03-14 10:45 | Outpatient (BNV) | payer OTHER, SELFPAY | PROVIDERS: PCP Nurse Practitioner Family; Visit Provider Radiology Diagnostic Radiology | DX: Z12.31 Encounter for screening mammogram for malignant neoplasm of breast (principal) | CPT/HCPCS: 77063; 77067 ==

== ENCOUNTER 2024-03-25 08:29 | Outpatient (REF) | payer OTHER, SELFPAY ==
--- NOTE | ~2024-03-25 | US_ITS ---
EXAMINATION: US COMPLETE ABDOMEN WITH LIVER ELASTOGRAPHY CLINICAL INFORMATION: Abnormal blood chemistry. COMPARISON: None available. TECHNIQUE: Real-time imaging of the abdominal viscera. Noninvasive ultrasound liver fibrosis assessment is performed using Annamaria ElastPQ point quantification shear wave elastography (pSWE) with a C5-2 MHz transducer. Multiple elastography samples are obtained. FINDINGS: PANCREAS: Normal. The visualized pancreatic head and body are normal in appearance. The remainder of the pancreas is obscured from visualization by the overlying bowel gas. ABDOMINAL AORTA: The proximal, middle, and distal aortic segments are normal in caliber. INFERIOR VENA CAVA: Visualized portions are normal. LIVER: The liver demonstrates increased size, normal contour and coarsely increased echogenicity. No focal solid lesion or intrahepatic biliary duct dilatation. Within the right hepatic lobe, a 3.6 cm benign, simple cyst is incidentally noted, for which no imaging follow-up is recommended. The right lobe measures 20.2 cm in length. The left lobe measures 13.2 cm in length. Portal flow is towards the liver (hepatopetal). Shear wave liver elastography median stiffness is 2.16 m/s (reference: normal median stiffness is 1.3 m/s or less). IQR/median stiffness to assess sampling precision is 0.12 (reference: good quality data set is IQR/median stiffness of 0.15 or less). GALLBLADDER: There is very mild layering biliary sludge. The gallbladder is physiologically distended without evidence of stones, polyps, wall thickening or pericholecystic fluid. COMMON BILE DUCT: Normal in caliber measuring 0.6 cm in diameter. RIGHT KIDNEY: Normal. No hydronephrosis. No renal calculi or focal parenchymal lesions. The kidney measures 10.5 cm in maximum dimension. LEFT KIDNEY: Normal. No hydronephrosis. No renal calculi or focal parenchymal lesions. The kidney measures 10.5 cm in maximum dimension. SPLEEN: No focal finding. The spleen measures 18.9 cm in maximum dimension. FREE FLUID: None. US/US abdomen comp w elastography IMPRESSION: 1. There is hepatosplenomegaly. 2. There is coarsely increased hepatic echotexture, consistent with fatty infiltration or hepatocellular disease. Please correlate clinically. No focal hepatic mass or intrahepatic biliary dilatation is seen. 3. Liver elastography: Measuremensts are consistent with compensated advanced chronic liver disease. REFERENCE: Society of Radiologists in Ultrasound Liver Stiffness Thresholds (2020): LIVER STIFFNESS THRESHOLDS: *Liver Stiffness equal or less than 1.3 m/s: High probability of being normal. *Liver Stiffness less than 1.7 m/s: In the absence of other known clinical signs, rules out compensated advanced chronic liver disease. *Liver Stiffness 1.7-2.1 m/s: Suggestive of compensated advanced chronic liver disease but need further test for confirmation. *Liver Stiffness over 2.1 m/s: Rules in compensated advanced chronic liver disease. *Liver Stiffness over 2.4 m/s: Suggestive of clinically significant portal hypertension. QUALITY OF DATA SET: *IQR/Median value equal or less than 0.15 implies a quality data set. *IQR/Median value over 0.15 implies a poor quality data set. SIGNIFICANT CHANGE FROM PRIOR EXAM: Significant change if liver stiffness measurement is 10% or greater from prior exam. OTHER CONSIDERATIONS: The stage of liver fibrosis may be overestimated in the setting of acute hepatitis, liver inflammation, elevated liver function tests, hepatic vascular congestion, obstructive cholestasis, non-fasting state, and infiltrative diseases such as amyloidosis and lymphoma. In some patients with NAFLD, the liver stiffness thresholds for compensated advanced chronic liver disease may be lower. In causes other than viral hepatitis and NAFLD, liver stiffness thresholds are not well established. Electronically signed by: Henri Doherty MD 04/23/2024 03:22 PM EDT
== END 2024-03-25 08:30 | disposition home or self-care (01) ==
LOC: HO.US 08:29
PROVIDERS: PCP Nurse Practitioner Family; Visit Provider Nurse Practitioner Family
DX: R79.89 Other specified abnormal findings of blood chemistry (principal)
CPT/HCPCS: 76700; 76981

== ENCOUNTER 2024-04-26 09:14 | Outpatient (AMB) | payer OTHER, SELFPAY ==
--- NOTE | 2024-04-26 09:16 | A.OFFPC_ITS ---
Vital Signs 04/26/24 09:18 Height 5 ft 3 in Weight 170 lb BMI 30.1 BP 142/78 H Blood Pressure Location Rt brachial Position Sitting Respiration 16 Pulse 111 H Pulse Source Pulse Oximeter Pulse Oximetry (%) 98 Oxygen Delivery Method Room Air Intake Visit Reasons: discuss US Liver, Echo, Labs Intake Note: follow up on liver ultrasound and labs. Allergies phenytoin [From Dilantin] Allergy (Severe, Verified 04/26/24 09:32) Rash codeine Adverse Reaction (Severe, Verified 04/26/24 09:32) Vomiting phenobarbital Adverse Reaction (Severe, Verified 04/26/24 09:32) Rash vancomycin Adverse Reaction (Severe, Verified 04/26/24 09:32) Rash Medication List - Last Reconciled 04/26/24 by Ronit Mcgill, SERVICE DESK AGENT- clotrimazole-betamethasone 1-0.05 % 1 appl topical BID 2 weeks escitalopram oxalate 10 mg PO DAILY gabapentin 600 mg (2 x 300 mg) PO TID 30 days tizanidine 4 mg (2 x 2 mg) PO TID PRN 5 days trazodone 50 mg PO DAILY Tobacco use date assessed: 01/17/24 Dental Screening Dental Screen Date: 01/17/24 HPI HPI Comments History of Present Illness Details 53 y/o F with MDD with suicide attempt 2 023, reports childhood epilpesy (not on meds currently last Sz in teens), chronic lower ext swelling, HTN, diverticulitis, prothrombin gene mutation Surgery: appendectomy, left lower ext with compartment syndrome surgery Family hx: Sister w/ stroke Suicide attempt w/ med overdose in 2022, took lisinopril. Was hospitalized. Utilization: [facility] Health Maintenance: Colon interested in cologaurd, reports colon done about 2009 only dx with diverticulitis. Denies hx of colon cancer. Mammo 03/14/24 WNL DEXA 02/2024 DIAGNOSIS: Osteoporosis based on the lowest T-score value of -3.3 in the femoral neck applying World Health Organization criteria PAP 01/2024 Tdap 02/27/2024 Specialists: Psychiatry counselor EXHIBIT PREPARATOR Here today for routine follow up of chronic conditions. Edema is further improved, cont taking red vine leaf and thinks this has helped cont to be worse at end of day depedent on activities. Cont to take supplement which feels is helping. Denies chest pain, sob, abd pain, vomiting, bowel changes. I reviewed with her in detail the findings of her bone density which showed osteoporosis, her echocardiogram as well as the liver elastography. She wanted to let me know that Has used pred taper in the past for flare with + effect. starting at 50mg, Rxd by Dr Holman. Not currently in the flare. Exam: General: Well developed, well nourished, in no acute distress. Appears stated age.. Lungs: Clear to auscultation bilaterally. No rales, rhonchi or wheeze noted. Good air flow in all chaparro. Heart: Tachycardic, Regular rhythm. No murmurs, click, rubs or gallops are noted. Abdomen: Limited exam as she was examined in the chair due to inability to get on exam table. Abdomen is round, protuberant, soft, nontender Pulses: Peripheral pulses nonpalpable bilat Extremities: No clubbing, cyanosis, +1 edema left lower extremity, trace edema right lower extremity Neurologic: Gait and station normal. Cranial Nerves 2-12 intact. Abnormal balance due to peripheral neuropathy affecting bilateral lower extremities Psych: Normal eye contact, affect and mood appropriate, and normal interactions. Patient is alert and appropriate to context. Plan We will need to refer to rheumatology in the future for a workup of the osteoporosis. However given the liver disease, we will hold off at this time. She is already taking a calcium and vitamin-D supplement. Encouraged to continue this along with weight-bearing movement/exercise as tolerated. In regards to the finding of the echocardiogram, discuss with her today. We will hold off on a cardiology referral at this time and see what gastroenterology has to say. If needed we will place a referral to Cardiology. She remains mildly tachycardic. At this time continue exam medications, follow up with Gastroenterology as scheduled on May 15. I would like to see her back in the beginning of May to follow up, sooner as needed. Trazodone and/or gabapentin may need to be discontinued in the future. The gabapentin may be contributing to her edema in the trazodone may be contributing to the liver enzyme elevation however no decisions will be made at this time to stop these meds This note is constructed using voice recognition software. While every effort has been made to ensure accuracy in medical fee clerk, still errors may have been included Sometimes, these errors may affect the content or meaning of the given sentence . Total time spent caring for the patient today was 45 minutes. This includes time spent before the visit reviewing the chart, time spent during the visit, and time spent after the visit on documentation [facility] Medical History Eczema History of suicidal ideation Anxiety Neuropathy Surgical History History of surgery on lower extremity History of appendectomy Family History Family/Other Stroke Maternal Grandmother MS (multiple sclerosis) Maternal Aunt Lupus Mother Dementia Other Mental health disorder Substance abuse Social History Housing: Apartment Patient Tobacco Use Status: Never used Tobacco e-Cigarette/Vaping Use: Never Used service: No Current occupational status: unemployed Cognitive needs: No Hearing needs: No Vision needs: Yes Female Reproductive History Menstrual Age of Menarche: 15 Questionnaire Thrive Questionnaire Date Thrive assessed: 01/17/24 ARMAAN-7 AMB Questionnaire ARMAAN-7 Date ARMAAN - 7 assessed: 01/17/24 Source: Developed by Drs. Octavio Jaimes, Lexi Garrett, Aníbal Vann and colleagues, with an educational alexsander from [employer]. Physical exam (Primary Care) Vital Signs: Last Vital Signs Pulse 111 H 04/26/24 09:18 Resp 16 04/26/24 09:18 BP 142/78 H 04/26/24 09:18 Pulse Ox 98 04/26/24 09:18 Oxygen Delivery Method Room Air 04/26/24 09:18 BMI result Body Mass Index 30.1 Tobacco/Smoking Status: Tobacco use Status Tobacco use date assessed 01/17/24 04/26/24 09:17 Patient Tobacco Use Status Never used Tobacco 04/26/24 09:17 e-Cigarette/Vaping Use Never Used 04/26/24 09:17 Thrive Assessment: Date of Thrive Assessment Date Thrive assessed 01/17/24 04/26/24 09:17 Results Reviewed Results Reviewed: 02/2024 Echo: Conclusions: - The left ventricular systolic function is normal. The calculated ejection fraction is 65% by biplane method. - No obvious valvular pathology seen on this study. Findings Left Ventricle Normal left ventricular cavity size. The left ventricular systolic function is normal. The calculated ejection fraction is 65% by biplane method. There is no evidence of regional wall motion abnormalities. Evidence suggests grade I (mild) diastolic dysfunction. There is mild septal asymmetric hypertrophy. Right Ventricle Normal right ventricular cavity size and systolic function. Atria The left atrium is mildly dilated. The right atrium is normal in size. DEXA 02/2024 1. DIAGNOSIS: Osteoporosis based on the lowest T-score value of - 3.3 in the femoral neck applying World Health Organization criteria. 04/24/24 Liver elastography 1. There is hepatosplenomegaly. 2. There is coarsely increased hepatic echotexture, consistent with fatty infiltration or hepatocellular disease. Please correlate clinically. No focal hepatic mass or intrahepatic biliary dilatation is seen. 3. Liver elastography: Measuremensts are consistent with compensated advanced chronic liver disease. Assessment and Plan Assessment & Plan (1) Osteoporosis: Comment: 02/2024 1. DIAGNOSIS: Osteoporosis based on the lowest T-score value of -3.3 in the femoral neck applying World Health Organization criteria. Code(s): M81.0 - Age-related osteoporosis without current pathological fracture Qualifiers: Osteoporosis type: unspecified Presence of current pathological fracture: without current pathological fracture Qualified Code(s): M81.0 - Age-related osteoporosis without current pathological fracture (2) Abnormal echocardiogram: Code(s): R93.1 - Abnormal findings on diagnostic imaging of heart and coronary circulation (3) Elevated LFTs: Code(s): R79.89 - Other specified abnormal findings of blood chemistry Medications: Refilled gabapentin 600 mg (2 x 300 mg) PO TID 180 caps 2RF 30 days Coding Level of Care Code Est Pt Level 5 (43333) Diagnoses Osteoporosis without current pathological fracture, unspecified osteoporosis type M81.0 Osteoporosis type: unspecified Presence of current pathological fracture: without current pathological fracture Abnormal echocardiogram R93.1 Elevated LFTs R79.89
[2024-04-26 09:18] VITALS: BP 142/78; PULSE 111; RESP 16; O2SAT 98; BMI 30.1
== END 2024-04-26 09:42 | disposition home or self-care (01) ==
PROVIDERS: PCP Nurse Practitioner Family; Visit Provider Nurse Practitioner Family
DX: M81.0 Age-related osteoporosis without current pathological fracture (principal); R93.1 Abnormal findings on diagnostic imaging of heart and coronary circulation; R79.89 Other specified abnormal findings of blood chemistry
CPT/HCPCS: 99215

== ENCOUNTER 2024-05-15 10:07 | Outpatient (REF) | payer OTHER, SELFPAY ==
[2024-05-15 12:47] LABS: HBS Num1 0.53 mIU/mL (0-7.99); HBsAGNum1 0.27 S/CO (0.00-0.99); Hepatitis B Core Antibody Nonreactive (Nonreactive); Hepatitis B Surface Antigen Negative (Negative); ~HepC Num1 0.63 S/CO (0.00-0.79); ~Hepatitis B Surface Antibody NONREACTIVE (Nonreactive); ~Hepatitis C Antibody Nonreactive (Nonreactive)
[2024-05-15 12:48] LABS: Hepatitis A Antibody IgG Nonreactive (Nonreactive); ~Hepatitis A Antibody IgG 0.38 S/CO (0.00-0.99)
[2024-05-16 23:14] LABS: Immunoglobulin A 419 mg/dL (47-310)
[2024-05-20 13:49] LABS: Liver Kidney Microsomal Ab <=20.0 U (<=20.0)
[2024-05-20 15:28] LABS: Mitochondrial Antibodies NEGATIVE (NEGATIVE)
[2024-05-20 21:08] LABS: Transglutaminase IgA <1.0 U/mL
[2024-05-21 12:18] LABS: Phosphatidylethanol 16:0-18:2 >400 (H)
== END 2024-05-15 10:08 | disposition home or self-care (01) ==
LOC: HO.LAB 10:07
PROVIDERS: PCP Nurse Practitioner Family; Visit Provider Internal Medicine
DX: R79.89 Other specified abnormal findings of blood chemistry (principal)
CPT/HCPCS: 36415; 80321; 81256; 82784; 86364; 86376; 86381; 86704; 86706; 86708; 86803; 87340

== ENCOUNTER 2024-05-15 10:07 | Outpatient (AMB) | payer OTHER, SELFPAY ==
--- NOTE | 2024-05-15 10:11 | A.OFFVIS_ITS ---
Vital Signs 05/15/24 10:12 Height 5 ft 3 in Weight 170 lb BMI 30.1 BP 134/60 Blood Pressure Location Lt brachial Position Sitting Pulse 96 Intake Visit Reasons: Liver Disease Intake Note: Patient new consult for liver disease. Patient denies any GI issues for today. Direct Marketing Executive Required: No Accompanied by: Self / Same As Patient Allergies phenytoin [From Dilantin] Allergy (Severe, Verified 05/15/24 10:10) Rash codeine Adverse Reaction (Severe, Verified 05/15/24 10:10) Vomiting phenobarbital Adverse Reaction (Severe, Verified 05/15/24 10:10) Rash vancomycin Adverse Reaction (Severe, Verified 05/15/24 10:10) Rash HPI Comments Details: 53y.o F with PMH of who is here for elevated LFTs. Pt reports getting routine blood work through PCP office which showed elevated LFTs which prompted this referral. Pt does not report any abd pain, N,V, changes in bowel habits. No family hx of liver disease. No changes in med in the last 6 months. Recently started red vine leaf for leg swelling and circulation around 4 months ago. Occ drinks 2-3 times a year around holidays - has 1-2 glasses of wine in a s johanne sitting. Labs ordered by PCP reviewed - peritnent labs include markedly elevated GGT ? fatty liver. High TSAT with normal Ferritin ? uron overload. Mildly pos ASMA ?AIH. US elastography reviewed. Of note pt also recently diagnosed with osteoporosis. Sister has celiac. [facility] Medical History Eczema History of suicidal ideation Anxiety Neuropathy Surgical History History of surgery on lower extremity History of appendectomy Family History Family/Other Stroke Maternal Grandmother MS (multiple sclerosis) Maternal Aunt Lupus Mother Dementia Other Mental health disorder Substance abuse Social History Housing: Apartment Patient Tobacco Use Status: Never used Tobacco e-Cigarette/Vaping Use: Never Used service: No Current occupational status: unemployed Cognitive needs: No Hearing needs: No Vision needs: Yes Female Reproductive History Menstrual Age of Menarche: 15 Review of Systems Const All systems reviewed & are unremarkable except as noted in HPI and below Physical Exam Vital Signs: Last Vital Signs Pulse 96 05/15/24 10:12 BP 134/60 05/15/24 10:12 BMI result Body Mass Index 30.1 No apparent distress Nonicteric Abdomen soft, nondistended Alert and oriented x3, normal gait Assessment & Plan Assessment & Plan (1) Elevated LFTs: Code(s): R79.89 - Other specified abnormal findings of blood chemistry Category: Medical (2) Iron overload: Code(s): E83.19 - Other disorders of iron metabolism Category: Medical (3) Osteoporosis: Code(s): M81.0 - Age-related osteoporosis without current pathological fracture Category: Medical Qualifiers: Osteoporosis type: unspecified Presence of current pathological fracture: without current pathological fracture Qualified Code(s): M81.0 - Age- related osteoporosis without current pathological fracture (4) Obesity (BMI 30-39.9): Comment: Lifestyle modifications encouraged. Code(s): E66.9 - Obesity, unspecified Category: Medical Plan Further labs being ordered to explore Ddx of HH, AIH and fatty liver. Given osteoporosis at young age with fam hx of celiac, will check celiac panel as well. In addition, chronic hep panel ordered. Discussed that statistically speaking MAFLD/POWERS most likely but will pursue w/up as below. Plan: - Labs as below - MRI liver protocol for assessment of iron vs fat deposition - Based on above may likely need liver bx Follow up 2 months Orders: Orders DNA Analysis Hemochromatosis Today R7. - Other specified abnormal findings of blood chemistry Mitochondrial Antibody Today R7. - Other specified abnormal findings of blood chemistry Phosphatidylethanol, Blood Today R7. - Other specified abnormal findings of blood chemistry Hepatitis A IgG Today R7.89 - Other specified abnormal findings of blood chemistry Hepatitis B Surface Antibody Today R7.89 - Other specified abnormal findings of blood chemistry Hepatitis B Surface Antigen Today R7.89 - Other specified abnormal findings of blood chemistry Hepatitis C Antibody Today R7.89 - Other specified abnormal findings of blood chemistry MR abdomen wo/w con Today E83.19 - Other disorders of iron metabolism, R7. - Other specified abnormal findings of blood chemistry Liver Kidney Microsomal Ab Today R7. - Other specified abnormal findings of blood chemistry Hepatitis B Core Antibody Today R7. - Other specified abnormal findings of blood chemistry Transglutaminase IgA Today R79.89 - Other specified abnormal findings of blood chemistry Immunoglobulin A Today R79.89 - Other specified abnormal findings of blood chemistry Coding Level of Care Code New Pt Level 4 (56620) Diagnoses Elevated LFTs R79.89 Iron overload E83.19 Osteoporosis without current pathological fracture, unspecified osteoporosis type M81.0 Osteoporosis type: unspecified Presence of current pathological fracture: without current pathological fracture Obesity (BMI 30-39.9) E66.9
[2024-05-15 10:12] VITALS: BP 134/60; PULSE 96; BMI 30.1
== END 2024-05-15 11:48 | disposition home or self-care (01) ==
PROVIDERS: PCP Nurse Practitioner Family; Visit Provider Internal Medicine
DX: R79.89 Other specified abnormal findings of blood chemistry (principal); E83.19 Other disorders of iron metabolism; M81.0 Age-related osteoporosis without current pathological fracture; E66.9 Obesity, unspecified
CPT/HCPCS: 99204

== ENCOUNTER 2024-05-21 14:38 | Outpatient (AMB) | payer OTHER, SELFPAY ==
--- NOTE | 2024-05-21 14:41 | MHC.PC.OV ---
Intake Visit Reasons: Flare up [phone] (android) Allergies phenytoin [From Dilantin] Allergy (Severe, Verified 05/21/24 14:42) Rash codeine Adverse Reaction (Severe, Verified 05/21/24 14:42) Vomiting phenobarbital Adverse Reaction (Severe, Verified 05/21/24 14:42) Rash vancomycin Adverse Reaction (Severe, Verified 05/21/24 14:42) Rash Medication List - Last Reconciled 05/21/24 by Ronit Mcgill, [facility] clotrimazole-betamethasone 1-0.05 % 1 appl topical BID 2 weeks escitalopram oxalate 10 mg PO DAILY gabapentin 600 mg (2 x 300 mg) PO TID 30 days tizanidine 4 mg (2 x 2 mg) PO TID PRN 5 days trazodone 50 mg PO DAILY Tobacco use date assessed: 01/17/24 Dental Screening Dental Screen Date: 01/17/24 HPI HPI Comments History of Present Illness Details 53 y/o F with MDD with suicide attempt 2022, reports childhood epilpesy (not on meds currently last Sz in teens), chronic lower ext swelling, HTN, diverticulitis, prothrombin gene mutation Surgery: appendectomy, left lower ext with compartment syndrome surgery Family hx: Sister w/ stroke Suicide attempt w/ med overdose in 2022, took lisinopril. Was hospitalized. Utilization: [facility] Maintenance: Colon interested in cologaurd, reports colon done about 2009 only dx with diverticulitis. Denies hx of colon cancer. Mammo 03/14/24 WNL DEXA 02/2024 DIAGNOSIS: Osteoporosis based on the lowest T-score value of -3.3 in the femoral neck applying World Health Organization criteria PAP 01/2024 Tdap 02/27/2024 Specialists: Psychiatry counselor INTER COM INSTALLER Telehealth visit today for c/o flare Extra pain, hurts a lot to put pressure on feet at all Describes as excruciating 04/01-05/07 Sx started Monday evening Swelling is unchanged Last flare > 1 year ago Has used pred taper in the past for flare with + effect. starting at 50mg, Rxd by Dr Holman Plan: Pred taper Advised not to use NSAIDS while taking prednisone; take in the AM with Food. If worsening of sx OR no improvement, asked that she reach out to me. [facility] Medical History Eczema History of suicidal ideation Anxiety Neuropathy Surgical History History of surgery on lower extremity History of appendectomy Family History Family/Other Stroke Maternal Grandmother MS (multiple sclerosis) Maternal Aunt Lupus Mother Dementia Other Mental health disorder Substance abuse Social History Housing: Apartment Patient Tobacco Use Status: Never used Tobacco e-Cigarette/Vaping Use: Never Used service: No Current occupational status: unemployed Cognitive needs: No Hearing needs: No Vision needs: Yes Female Reproductive History Menstrual Age of Menarche: 15 Questionnaire Thrive Questionnaire Date Thrive assessed: 01/17/24 AUDIT C Alcohol Use Questionnaire (AUDIT-C) 3. How often do you have six or more drinks on one occasion?: Never Total Score: 0 ARMAAN-7 AMB Questionnaire ARMAAN-7 Date ARMAAN - 7 assessed: 01/17/24 Source: Developed by Drs. Octavio Jaimes, Lexi Garrett, Aníbal Vann and colleagues, with an educational alexsander from [employer]. Physical exam (Primary Care) Tobacco/Smoking Status: Tobacco use Status Tobacco use date assessed 01/17/24 05/21/24 14:42 Patient Tobacco Use Status Never used Tobacco 05/21/24 14:42 e-Cigarette/Vaping Use Never Used 05/21/24 14:42 Thrive Assessment: Date of Thrive Assessment Date Thrive assessed 01/17/24 05/21/24 14:42 Telehealth Telehealth Telehealth Platform: Telephone Location of provider rendering services: practice address Location of patient: address on file Patient Identification confirmed using: Name, : Yes Telehealth method: voice only Patient verbally consented to treatment: Yes Patient verbally consented to billing insurance company: Yes Patient informed of any privacy concerns related to visit: Yes Minutes spent on Phone/Video with Pt.: 7 Assessment and Plan Assessment & Plan (1) Peripheral neuropathy: Comment: Patient reports a full workup at [facility]. 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 We will have to get these records to further clarify. At this time she is on gabapentin 600 t.i.d.. Reports her pain is managed. We will continue at this time. Code(s): G62.9 - Polyneuropathy, unspecified Qualifiers: Peripheral neuropathy type: polyneuropathy associated with underlying disease Qualified Code(s): G63 - Polyneuropathy in diseases classified elsewhere (2) Acute pain of left foot: Code(s): M79.672 - Pain in left foot (3) Acute pain of right foot: Code(s): M79.671 - Pain in right foot Medications: New prednisone [id number],5mgx2 then STOP 10 mg PO DIRECTED 46 tabs 0RF Coding Level of Care Code Tele Est Pt Level 1 (73049) Diagnoses Polyneuropathy associated with underlying disease G63 Peripheral neuropathy type: polyneuropathy associated with underlying disease Acute pain of left foot M79.672 Acute pain of right foot M79.671
== END 2024-05-21 14:58 | disposition home or self-care (01) ==
LOC: HO.HMCFM 14:38
PROVIDERS: PCP Nurse Practitioner Family; Visit Provider Nurse Practitioner Family
DX: M79.672 Pain in left foot (principal); M79.671 Pain in right foot; G63 Polyneuropathy in diseases classified elsewhere

== ENCOUNTER → 2024-05-21 14:38 | Outpatient (BNVA) | payer OTHER, SELFPAY | PROVIDERS: PCP Nurse Practitioner Family; Visit Provider Nurse Practitioner Family | DX: G62.89 Other specified polyneuropathies (principal); M79.671 Pain in right foot; M79.672 Pain in left foot ==

== ENCOUNTER 2024-06-07 09:04 | Outpatient (AMB) | payer OTHER, SELFPAY ==
--- NOTE | 2024-06-07 09:32 | MHC.PC.OV ---
Vital Signs 06/07/24 09:35 Height 5 ft 3 in Weight 176 lb 6 oz BMI 31.2 BP 156/72 H Blood Pressure Location Lt brachial Position Sitting Respiration 15 Pulse 106 H Pulse Source Pulse Oximeter Pulse Oximetry (%) 93 Oxygen Delivery Method Room Air Intake Visit Reasons: routine f/u chronic conditions Intake Note: routine follow up Allergies phenytoin [From Dilantin] Allergy (Severe, Verified 06/07/24 09:44) Rash codeine Adverse Reaction (Severe, Verified 06/07/24 09:44) Vomiting phenobarbital Adverse Reaction (Severe, Verified 06/07/24 09:44) Rash vancomycin Adverse Reaction (Severe, Verified 06/07/24 09:44) Rash Medication List - Last Reconciled 06/07/24 by Ronit Mcgill, [facility]- clotrimazole-betamethasone 1-0.05 % 1 appl topical BID 2 weeks escitalopram oxalate 10 mg PO DAILY gabapentin 600 mg (2 x 300 mg) PO TID 30 days tizanidine 4 mg (2 x 2 mg) PO TID PRN 5 days trazodone 50 mg PO DAILY Tobacco use date assessed: 01/17/24 Dental Screening Dental Screen Date: 01/17/24 HPI HPI Comments History of Present Illness Details 53 y/o F with MDD with suicide attempt 2022, reports childhood epilpesy (not on meds currently last Sz in teens), chronic lower ext swelling, HTN, diverticulitis, prothrombin gene mutation Surgery: appendectomy, left lower ext with compartment syndrome surgery Family hx: Sister w/ stroke Suicide attempt w/ med overdose in 2022, took lisinopril. Was hospitalized. Utilization: Zin[employer]gl Health Maintenance: Colon interested in cologaurd, reports colon done about 2009 only dx with diverticulitis. Denies hx of colon cancer. Mammo 03/14/24 WNL DEXA 02/2024 1. 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 Cont to deny etoh use. MRI next week. GI f/u 06/2024. Did [address] referral to Rheum today for osteoporosis eval and tx; as this will take months to get in. Denies any falls. Hold off on Cards fu at this time, while GI completes workup. May need referral in the future. Denies chest pain, sob. Exam: General: Well developed, well nourished, in no acute distress. Appears stated age.. Lungs: Clear to auscultation bilaterally. No rales, rhonchi or wheeze noted. Good air flow in all chaparro. Heart: Tachycardic, Regular rhythm. 2/6 systolic murmur, click, rubs or gallops are noted. Abdomen: Limited exam as she was examined in the chair due to inability to get on exam table. Abdomen is round, protuberant, soft, nontender Pulses: Peripheral pulses nonpalpable bilat Extremities: No clubbing, cyanosis, non edema ble, AFO LLE, amb w walker Neurologic: Gait and station normal. Cranial Nerves 2-12 intact. Abnormal balance due to peripheral neuropathy affecting bilateral lower extremities Psych: Normal eye contact, affect and mood appropriate, and normal interactions. Patient is alert and appropriate to context. Plan Flu shot today cont all meds cont care w/ GI Refer to Rheum for osteoporosis Continue to consider need for cardiology consult given tachycardia and echocardiogram results Returned to the office in 3 months for routine follow up, sooner as needed This note is constructed using voice recognition software. While every effort has been made to ensure accuracy in ophthalmic surgical assistant, still errors may have been included Sometimes, these errors may affect the content or meaning of the given sentence . Total time spent caring for the patient today was 45 minutes. This includes time spent before the visit reviewing the chart, time spent during the visit, and time spent after the visit on documentation [facility] Medical History Eczema History of suicidal ideation Anxiety Neuropathy Surgical History History of surgery on lower extremity History of appendectomy Family History Family/Other Stroke Maternal Grandmother MS (multiple sclerosis) Maternal Aunt Lupus Mother Dementia Other Mental health disorder Substance abuse Social History Housing: Apartment Patient Tobacco Use Status: Never used Tobacco e-Cigarette/Vaping Use: Never Used service: No Current occupational status: unemployed Cognitive needs: No Hearing needs: No Vision needs: Yes Female Reproductive History Menstrual Age of Menarche: 15 Questionnaire PHQ-9 Over the last 2 weeks, how often have you been bothered by any of the following problems? 1. Little interest or pleasure in doing things: not at all 2. Feeling down, depressed, or hopeless: not at all 3. Trouble falling or staying asleep, or sleeping too much: not at all 4. Feeling tired or having little energy: not at all 5. Poor appetite or overeating: not at all 6. Feeling bad about yourself - or that you are a failure or have let yourself or your family down: not at all 7. Trouble concentrating on things, such as reading the newspaper or watching television: not at all 8. Moving or speaking so slowly that other people could have noticed. Or the opposite - being so fidgety or restless that you have been moving around a lot more than usual: not at all 9. Thoughts that you would be better off or of hurting yourself in some way: not at all Total score: 0 92919 - PHQ-9 Billing: Yes Source: Developed by Drs. Octavio Jaimes, Lexi Garrett, Aníbal Vann and colleagues, with an educational alexsander from [employer]. Thrive Questionnaire Date Thrive assessed: 01/17/24 ARMAAN-7 AMB Questionnaire ARMAAN-7 Date ARMAAN - 7 assessed: 06/07/24 Feeling nervous, anxious, or on edge: 0 = Not at all Not being able to stop or control worryin = Not at all Worrying too much about different things: 0 = Not at all Trouble relaxin = Not at all Being so restless that it is hard to sit still: 0 = Not at all Becoming easily annoyed or irritable: 0 = Not at all Feeling afraid as if something awful might happen: 0 = Not at all Total ARMAAN-7 score (0-4 normal; 5-9 mild; 10-14 moderate; 15-21 severe): 0 Source: Developed by Drs. Octavio Jaimes, Lexi Garrett, Aníbal Vann and colleagues, with an educational alexsander from [employer]. ARMAAN-7 Assessment Billing ARMAAN-7 Assessment Tool: ARMAAN-7 Assessment 36293 Physical exam (Primary Care) Vital Signs: Last Vital Signs Pulse 106 H 06/07/24 09:35 Resp 15 06/07/24 09:35 BP 156/72 H 06/07/24 09:35 Pulse Ox 93 06/07/24 09:35 Oxygen Delivery Method Room Air 06/07/24 09:35 BMI result Body Mass Index 31.2 Tobacco/Smoking Status: Tobacco use Status Tobacco use date assessed 01/17/24 06/07/24 09:33 Patient Tobacco Use Status Never used Tobacco 06/07/24 09:33 e-Cigarette/Vaping Use Never Used 06/07/24 09:33 PHQ-9: PHQ-9 Score PHQ-9: Total score 0 06/07/24 10:06 Thrive Assessment: Date of Thrive Assessment Date Thrive assessed 01/17/24 06/07/24 09:33 Office Procedures Flu Questionnaire Does the patient have a severe egg allergy?: No Does the patient have severe life threatening allergies?: No Does the patient have a fever or illness today?: No Has the patient ever had Guillain-Adrian Syndrome?: No Has the patient ever had any past reaction to a flu shot?: No Immunizations Fluarix Triv 7139-8481 (PF) 45 mcg (15 mcg x 3)/0.5 mL IM syringe Performing Provider: Ronit Mcgill [facility] Performing Location: [facility] Administered by: Cyndi Khan RN on 06/07/24 10:06 Dose Route Admin Location Dispensed Lot Number Expiration Date [facility] Surgery Technician 0.5 mL IM Right Deltoid 0.5 mL [id number] 02/24/25 95738-881-17 [employer] VIS Given Date VIS Provided VIS Publication Date 06/07/24 Single Vaccine 21 Eligibility Eligibility Date Funding Source Not [facility] Eligible 06/07/24 Private Coding Level of Care Code Est Pt Level 5 (86709) Complex EM visit Add On G2211 Diagnoses Osteoporosis without current pathological fracture, unspecified osteoporosis type M81.0 Osteoporosis type: unspecified Presence of current pathological fracture: without current pathological fracture Elevated LFTs R79.89 Moderate episode of recurrent major depressive disorder F33.1 Major depression episode severity: moderate Obesity (BMI 30-39.9) E66.9 Polyneuropathy associated with underlying disease G63 Peripheral neuropathy type: polyneuropathy associated with underlying disease Additional Codes ARMAAN-7 Assessment Billing - ARMAAN-7 Assessment Tool: ARMAAN-7 Assessment 57137 ([id number]) Assessment & Plan Assessment & Plan (1) Osteoporosis: Code(s): M81.0 - Age-related osteoporosis without current pathological fracture Category: Medical Qualifiers: Osteoporosis type: unspecified Presence of current pathological fracture: without current pathological fracture Qualified Code(s): M81.0 - Age-related osteoporosis without current pathological fracture Plan: . (2) Elevated LFTs: Code(s): R79.89 - Other specified abnormal findings of blood chemistry Category: Medical Plan: . (3) MDD (major depressive disorder), recurrent episode: Comment: With suicide attempt in 2022. Currently on escitalopram 10 mg p.o. daily and trazodone 50 mg p.o. daily. She is managed by outside Psychiatry and counseling. Code(s): F33.9 - Major depressive disorder, recurrent, unspecified Category: Medical Qualifiers: Major depression episode severity: moderate Qualified Code(s): F33.1 - Major depressive disorder, recurrent, moderate (4) Obesity (BMI 30-39.9): Comment: Lifestyle modifications encouraged. Code(s): E66.9 - Obesity, unspecified Category: Medical Plan: . (5) Peripheral neuropathy: Comment: Patient reports a full workup at [facility] 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 We will have to get these records to further clarify. At this time she is on gabapentin 600 t.i.d.. Reports her pain is managed. We will continue at this time. Code(s): G62.9 - Polyneuropathy, unspecified Category: Medical Qualifiers: Peripheral neuropathy type: polyneuropathy associated with underlying disease Qualified Code(s): G63 - Polyneuropathy in diseases classified elsewhere Plan . Orders: Orders Influenza [id number] Immunization Today Z23 - Encounter for immunization Referrals Rheumatology Referral M81.0 - Age-related osteoporosis without current pathological fracture Medications: Refilled tizanidine 4 mg (2 x 2 mg) PO TID PRN 30 tabs 1RF muscle spasticity 5 days trazodone 50 mg PO DAILY 30 tabs 2RF
[2024-06-07 09:35] VITALS: BP 156/72; PULSE 106; RESP 15; O2SAT 93; BMI 31.2
== END 2024-06-07 10:13 | disposition home or self-care (01) ==
PROVIDERS: PCP Nurse Practitioner Family; Visit Provider Nurse Practitioner Family
DX: M81.0 Age-related osteoporosis without current pathological fracture (principal); F33.1 Major depressive disorder, recurrent, moderate; G63 Polyneuropathy in diseases classified elsewhere; E66.811 Obesity, class 1; Z68.31 Body mass index [BMI] 31.0-31.9, adult; R79.89 Other specified abnormal findings of blood chemistry

== ENCOUNTER → 2024-06-07 09:04 | Outpatient (BNVA) | payer OTHER, SELFPAY | PROVIDERS: PCP Nurse Practitioner Family; Visit Provider Nurse Practitioner Family | DX: M81.0 Age-related osteoporosis without current pathological fracture (principal); R79.89 Other specified abnormal findings of blood chemistry; F33.1 Major depressive disorder, recurrent, moderate; E66.9 Obesity, unspecified; G62.9 Polyneuropathy, unspecified; Z79.899 Other long term (current) drug therapy; Z23 Encounter for immunization | CPT/HCPCS: 90471; 90656; 96127 ==

== ENCOUNTER → 2024-06-14 08:15 | Outpatient (BNV) | payer OTHER, SELFPAY | PROVIDERS: PCP Nurse Practitioner Family; Visit Provider Radiology Diagnostic Radiology | DX: R16.2 Hepatomegaly with splenomegaly, not elsewhere classified (principal); K76.89 Other specified diseases of liver | CPT/HCPCS: 74183 ==

== ENCOUNTER 2024-06-14 08:32 | Outpatient (REF) | payer OTHER, SELFPAY ==
[2024-06-14] MEDS: gadobutroL 10 ML VIAL IVPUSH (10:00)
== END 2024-06-14 08:33 | disposition home or self-care (01) ==
LOC: HO.MRI 08:32
PROVIDERS: PCP Nurse Practitioner Family; Visit Provider Internal Medicine
DX: E83.19 Other disorders of iron metabolism (principal); R79.89 Other specified abnormal findings of blood chemistry
CPT/HCPCS: 74183; A9585

== ENCOUNTER 2024-09-18 15:37 | Outpatient (AMB) | payer OTHER, SELFPAY ==
--- NOTE | 2024-09-18 16:28 | MHC.PC.OV ---
Intake Visit Reasons: f/u Allergies phenytoin [From Dilantin] Allergy (Severe, Verified 09/18/24 16:31) Rash codeine Adverse Reaction (Severe, Verified 09/18/24 16:31) Vomiting phenobarbital Adverse Reaction (Severe, Verified 09/18/24 16:31) Rash vancomycin Adverse Reaction (Severe, Verified 09/18/24 16:31) Rash Medication List - Last Reconciled 09/18/24 by Ronit Mcgill, [facility]- clotrimazole-betamethasone 1-0.05 % 1 appl topical BID 2 weeks escitalopram oxalate 10 mg PO DAILY gabapentin 600 mg (2 x 300 mg) PO TID 30 days tizanidine 4 mg (2 x 2 mg) PO TID PRN 5 days trazodone 50 mg PO DAILY Tobacco use date assessed: 01/17/24 Dental Screening Dental Screen Date: 01/17/24 HPI HPI Comments History of Present Illness Details 53 y/o F with MDD with suicide attempt 2022, reports childhood epilpesy (not on meds currently last Sz in teens), chronic lower ext swelling, HTN, diverticulitis, prothrombin gene mutation Surgery: appendectomy, left lower ext with compartment syndrome surgery Family hx: Sister w/ stroke Suicide attempt w/ med overdose in 2022, took lisinopril. Was hospitalized. Utilization: [employer]GEN-[employer] Health Maintenance: Colon interested in cologaurd, reports colon done about 2009 only dx with diverticulitis. Denies hx of colon cancer. Mammo 03/14/24 WNL DEXA 02/2024 1. 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 Since last office visit she has no showed appointments and has been unreachable. I have tried to call her as well as her emergency contact who is her son without any return calls. I even sent a certified letter for a wellness check as it was unlike her to no-show her appointments. When I spoke with her today she states that her sister and then yesterday her brother . And in between that her cat . She has been feeling depressed and has been managing the circumstances related to the losses in her life. She denies any SI or HI. She is active with a counselor and psychiatrist. She is taking all of her medications as directed. I did make her aware that she had an abnormal MRI of her abdomen and that [facility] has been trying to reach her. She also has a new patient appointment scheduled with [facility] on 09/25/2024. She reports that she will be traveling for the arrangements and we will not be available for the 09/25/2024 appointment. Given all these stressors, I asked if there was anything that I can do such as reaching out to the office this to help her reschedule. She said yes. I sent a message to the [facility] group asking them to reach out to her any time after 09/23/2024 through schedule an appointment to discuss her abnormal MRI results and I also sent an appointment to [facility] to have them reschedule her 09/25/2024 appointment per her request. I did refill her Zanaflex as requested. She reports that she does not need any other refills on her medications. I did let her know that I am available for her should she need anything. I will have the office reach out to her to set up an appointment with me in a few weeks to check in to make sure that she is doing all right. The patient was appreciative check in and we will reach out should you need anything. Total time spent caring for the patient today was 30 minutes. This includes time spent before the visit reviewing the chart, time spent during the visit, and time spent after the visit on documentation, reviewing laboratory results, diagnostic imaging, medications, performing a medically necessary evaluation, counseling on diagnoses, care coordination, ordering appropriate tests, ordering appropriate medications, review of tests performed by other providers, reporting test results with the patient, communication with other healthcare providers. [facility] Medical History Eczema History of suicidal ideation Anxiety Neuropathy Surgical History History of surgery on lower extremity History of appendectomy Family History Family/Other Stroke Maternal Grandmother MS (multiple sclerosis) Maternal Aunt Lupus Mother Dementia Other Mental health disorder Substance abuse Social History Housing: Apartment Patient Tobacco Use Status: Never used Tobacco e-Cigarette/Vaping Use: Never Used service: No Current occupational status: unemployed Cognitive needs: No Hearing needs: No Vision needs: Yes Female Reproductive History Menstrual Age of Menarche: 15 Questionnaire Thrive Questionnaire Date Thrive assessed: 01/17/24 ARMAAN-7 AMB Questionnaire ARMAAN-7 Date ARMAAN - 7 assessed: 06/07/24 Source: Developed by Drs. Octavio Jaimes, Lexi Garrett, Aníbal Vann and colleagues, with an educational alexsander from [employer]. Physical exam (Primary Care) Tobacco/Smoking Status: Tobacco use Status Tobacco use date assessed 01/17/24 09/18/24 10:23 Patient Tobacco Use Status Never used Tobacco 09/18/24 10:23 e-Cigarette/Vaping Use Never Used 09/18/24 10:23 Thrive Assessment: Date of Thrive Assessment Date Thrive assessed 01/17/24 09/18/24 10:23 Telehealth Telehealth Telehealth Platform: [employer] Location of provider rendering services: practice address Location of patient: address on file Patient Identification confirmed using: Name, : Yes Telehealth method: voice only Patient verbally consented to treatment: Yes Patient verbally consented to billing insurance company: Yes Patient informed of any privacy concerns related to visit: Yes Minutes spent on Phone/Video with Pt.: 12 Results Reviewed Results Reviewed: [address] [address] Magnetic Resonance Report Signed Patient: Janene Her MR#: [id number] : 1970 Acct:[id number] Age/Sex: 53 / F ADM Date: 06/14/24 Loc: HO.MRI Attending Dr: Charlotte Johnson MD Ordering Physician: Charlotte Johnson MD Date of Service: 06/14/24 Procedure(s): MR abdomen wo/w con Accession Number(s): [id number] cc: Ronit Mcgill; Charlotte Johnson MD~ EXAMINATION: MR ABDOMEN WITHOUT AND WITH CONTRAST CLINICAL INFORMATION: Other disorders of iron metabolism COMPARISON: No priors. Correlated to ultrasound abdomen dated March 25, 2024. TECHNIQUE: MR abdomen was performed without and with use of 8 mL intravenous Gadavist gadolinium contrast. Postcontrast images are performed in multiphase dynamic sequences. Imaging was performed in 3 planes. No reported immediate complications FINDINGS: Submitted for interpretation on August 14, 2024. LIVER, GALLBLADDER, AND BILIARY TREE: Liver measures 19 cm. Nodular surface. There is a 4 cm well-defined, nonrestricted diffusion, nonenhancing fluid signal characteristic lesion centered in the right hepatic lobe, segments 4A/4B. There is an heterogeneous enhancement of the liver parenchyma. Main portal veins, hepatic veins and intrahepatic portion of the IVC are patent. No intrahepatic biliary ductal dilatation. Gallbladder is fluid-filled. No pericholecystic fluid collection or gallbladder wall thickening. Common bile duct measures 4 mm. PANCREAS: No focal mass. No peripancreatic fluid collections. No main pancreatic ductal dilatation. SPLEEN: 15 cm. Accessory spleen. ADRENAL GLANDS: No nodular lesions. KIDNEYS AND URETERS: Normal enhancement pattern. No renal mass. No hydronephrosis. GASTROINTESTINAL TRACT: Prominent vessels at the paraesophageal gastroesophageal junction. Stool within the large intestine. No intestinal dilatation. No ascites. ABDOMINAL WALL: Umbilical hernia containing fat and prominent vessels.. LYMPH NODES: No lymphadenopathy. VASCULAR: No aneurysm or dissection, abdominal aorta.. Prominent vessels at the distal paraesophageal/gastroesophageal junction. Prominent umbilical vein. OSSEOUS STRUCTURES: Grade 1 anterolisthesis L4-5. Multilevel lower lumbar spondylosis. Heart appears enlarged. MR/MR abdomen wo/w con IMPRESSION: Hepatosplenomegaly. Consider cirrhosis and less likely a lymphoproliferative disorder. 4 cm simple cyst, right hepatic lobe. No ascites. Probable cardiomegaly. 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 Currently on escitalopram 10 mg p.o. daily and trazodone 50 mg p.o. daily. She is managed by outside Psychiatry and counseling. Code(s): F33.9 - Major depressive disorder, recurrent, unspecified Category: Medical Qualifiers: Major depression episode severity: moderate Qualified Code(s): F33.1 - Major depressive disorder, recurrent, moderate (2) Elevated LFTs: Code(s): R79.89 - Other specified abnormal findings of blood chemistry Category: Medical Plan . Medications: Refilled tizanidine 4 mg (2 x 2 mg) PO TID 5 days PRN 30 tabs 1RF muscle spasticity
== END 2024-09-18 17:05 | disposition home or self-care (01) ==
PROVIDERS: PCP Nurse Practitioner Family; Visit Provider Nurse Practitioner Family
DX: F33.1 Major depressive disorder, recurrent, moderate (principal); R79.89 Other specified abnormal findings of blood chemistry

== ENCOUNTER → 2024-09-18 15:37 | Outpatient (BNVA) | payer OTHER, SELFPAY | PROVIDERS: PCP Nurse Practitioner Family; Visit Provider Nurse Practitioner Family ==

== ENCOUNTER 2025-07-15 10:21 | Outpatient (AMB) | payer OTHER, SELFPAY ==
--- NOTE | 2025-07-15 10:23 | A.OFFPC_ITS ---
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 clinically. No focal hepatic mass or intrahepatic biliary dilatation is seen. 3. Liver elastography: Measuremensts are consistent with compensated advanced chronic liver disease. Code(s): K76.9 - Liver disease, unspecified Category: Medical Plan , Orders: Orders MM tomosynthesis screening BI Today Z12.31 - Encounter for screening mammogram for malignant neoplasm of breast Lipid Panel Today E83.19 - Other disorders of iron metabolism, R00.0 - Tachycardia, unspecified, R03.0 - Elevated blood-pressure reading, without diagnosis of hypertension, R63.4 - Abnormal weight loss, R79.89 - Other specified abnormal findings of blood chemistry Vitamin D 25-OH Total Today E83.19 - Other disorders of iron metabolism, R00.0 - Tachycardia, unspecified, R03.0 - Elevated blood-pressure reading, without diagnosis of hypertension, R63.4 - Abnormal weight loss, R79.89 - Other specified abnormal findings of blood chemistry Drug Screen Urine Today E83.19 - Other disorders of iron metabolism, R00.0 - Tachycardia, unspecified, R03.0 - Elevated blood-pressure reading, without diagnosis of hypertension, R63.4 - Abnormal weight loss, R79.89 - Other specified abnormal findings of blood chemistry Influenza [id number] Immunization Today Z23 - Encounter for immunization Complete Blood Count no Diff Today E83.19 - Other disorders of iron metabolism, R00.0 - Tachycardia, unspecified, R03.0 - Elevated blood-pressure reading, without diagnosis of hypertension, R63.4 - Abnormal weight loss, R79.89 - Other specified abnormal findings of blood chemistry Comprehensive Met. Panel Today E83.19 - Other disorders of iron metabolism, R0 0.0 - Tachycardia, unspecified, R03.0 - Elevated blood-pressure reading, without diagnosis of hypertension, R63.4 - Abnormal weight loss, R79.89 - Other specified abnormal findings of blood chemistry Ferritin Today E83.19 - Other disorders of iron metabolism, R00.0 - Tachycardia, unspecified, R03.0 - Elevated blood-pressure reading, without diagnosis of hypertension, R63.4 - Abnormal weight loss, R79.89 - Other specified abnormal findings of blood chemistry Hemoglobin A1c Today E83.19 - Other disorders of iron metabolism, R00.0 - Tachycardia, unspecified, R03.0 - Elevated blood-pressure reading, without diagnosis of hypertension, R63.4 - Abnormal weight loss, R79.89 - Other specified abnormal findings of blood chemistry Microalbumin, Random (w Creat) Today E83.19 - Other disorders of iron metabolism, R00.0 - Tachycardia, unspecified, R03.0 - Elevated blood-pressure reading, without diagnosis of hypertension, R63.4 - Abnormal weight loss, R79.89 - Other specified abnormal findings of blood chemistry TSH reflex Free T4 Today E83.19 - Other disorders of iron metabolism, R00.0 - Tachycardia, unspecified, R03.0 - Elevated blood-pressure reading, without diagnosis of hypertension, R63.4 - Abnormal weight loss, R79.89 - Other specified abnormal findings of blood chemistry Vitamin B12 and Folate Today E83.19 - Other disorders of iron metabolism, R00.0 - Tachycardia, unspecified, R03.0 - Elevated blood-pressure reading, without diagnosis of hypertension, R63.4 - Abnormal weight loss, R79.89 - Other specified abnormal findings of blood chemistry Referrals Rheumatology Referral M81.0 - Age-related osteoporosis without current pathological fracture Gastroenterology Referral E83.19 - Other disorders of iron metabolism, K76.9 - Liver disease, unspecified, R16.2 - Hepatomegaly with splenomegaly, not elsewhere classified, R79.89 - Other specified abnormal findings of blood chemistry Cologuard Test Z12.11 - Encounter for screening for malignant neoplasm of colon Medications: New escitalopram oxalate 10 mg PO DAILY 30 tabs 1RF Refilled trazodone 50 mg PO DAILY 30 tabs 2RF gabapentin 600 mg (2 x 300 mg) PO TID 180 caps 2RF 30 days Discontinued clotrimazole-betamethasone 1-0.05 % Discontinued Reason: Patient no longer taking 1 appl topical BID 2 weeks 45 grams 1RF tizanidine Discontinued Reason: Patient no longer taking 4 mg (2 x 2 mg) PO TID 5 days PRN 30 tabs 1RF muscle spasticity
[2025-07-15 10:26] VITALS: BP 162/68; PULSE 111; RESP 14; TEMP 36.4; O2SAT 100; BMI 25.6
[2025-07-15 10:59] VITALS: BP 168/66; PULSE 122
== END 2025-07-15 11:16 | disposition home or self-care (01) ==
LOC: HO.HMCFM 10:22
PROVIDERS: PCP Nurse Practitioner Family; Visit Provider Nurse Practitioner Family
DX: I50.32 Chronic diastolic (congestive) heart failure (principal); R00.0 Tachycardia, unspecified; R03.0 Elevated blood-pressure reading, without diagnosis of hypertension; M81.0 Age-related osteoporosis without current pathological fracture; R16.2 Hepatomegaly with splenomegaly, not elsewhere classified; R79.89 Other specified abnormal findings of blood chemistry; E83.19 Other disorders of iron metabolism; R63.4 Abnormal weight loss; Z23 Encounter for immunization

== ENCOUNTER 2025-07-15 10:21 | Outpatient (REF) | payer OTHER, SELFPAY ==
[2025-07-15 14:51] LABS: NRBC Abs Auto 0.000 X10*3/uL (0.0-0.012); NRBC Pct Auto 0.0 /100WBC (0.0-0.2); PLT CLUMP 1
[2025-07-15 14:52] LABS: Hematocrit 32.0 % (37.0-47.0); Hemoglobin 10.7 g/dl (12.0-16.0); Mean Corpuscular HGB Conc 33.4 g/dl (31.0-35.0); Mean Corpuscular Hemoglobin 33.8 pg (27.0-33.0); Mean Corpuscular Volume 100.9 fL (80.0-98.0); Red Blood Count 3.17 X10*6/uL (4.20-5.50)
[2025-07-15 14:56] LABS: White Blood Count 6.0 X10*3/uL (4.8-10.8)
[2025-07-15 15:17] LABS: Platelet Count 128 X10*3/uL (160-400)
[2025-07-15 15:22] LABS: Microalbum/Creatinine Ratio Ur 5.7 ug/mg cr (<30)
[2025-07-15 15:27] LABS: Cannabinoid Screen Urine POSITIVE (Not Detect)
[2025-07-15 15:39] LABS: Alanine Aminotransferase 34 U/L (0-31); Albumin Level 4.4 g/dL (3.5-5.0); Alkaline Phosphatase 169 U/L (39-117); Anion Gap 13 (12-20); Aspartate Amino Transferase 51 U/L (5-31); Blood Urea Nitrogen 11 mg/dL (9-16); Calcium 9.5 mg/dL (8.4-10.2); Carbon Dioxide 26 mmol/L (22-29); Chloride 106 mmol/L (96-108); Cholesterol 296 mg/dL (<200); Estimated Glomerular Filt Rate > 60; Ferritin 264 ng/mL (10-250); HDL Cholesterol 65 mg/dL (>40); Potassium 3.6 mmol/L (3.3-5.1); Sodium 141 mmol/L (135-145); Total Protein 7.4 g/dL (6.5-8.0); Triglycerides 125 mg/dL (<150)
[2025-07-15 15:44] LABS: Folate 15.5 ng/mL (> or = 4.0); Vitamin B12 1468 pg/mL (200-900)
== END 2025-07-15 10:22 | disposition home or self-care (01) ==
LOC: HO.WFDLDS 10:21
PROVIDERS: PCP Nurse Practitioner Family; Visit Provider Nurse Practitioner Family
DX: M81.0 Age-related osteoporosis without current pathological fracture (principal); F32.9 Major depressive disorder, single episode, unspecified; R60.0 Localized edema; R79.89 Other specified abnormal findings of blood chemistry; E83.19 Other disorders of iron metabolism; R00.0 Tachycardia, unspecified; R63.4 Abnormal weight loss; R03.0 Elevated blood-pressure reading, without diagnosis of hypertension; I11.0 Hypertensive heart disease with heart failure; I50.32 Chronic diastolic (congestive) heart failure; R16.2 Hepatomegaly with splenomegaly, not elsewhere classified; K76.9 Liver disease, unspecified; Z23 Encounter for immunization; Z92.89 Personal history of other medical treatment; Z79.899 Other long term (current) drug therapy
CPT/HCPCS: 80053; 80061; 80307; 82043; 82306; 82570; 82607; 82728; 82746; 83036; 84443; 85027; 90471; 90656; 96127